=== PATIENT | male | born 1995 | race African-American/Black ===

== ENCOUNTER 2019-09-02 08:19 | Emergency (ER) | payer MEDICAID, OTHER ==
[~2019-09-02] VITALS: Ht 180.3 cm; Wt 96.4 kg
--- NOTE | 2019-09-02 08:57 | REP ---
Head CT without contrast: History: Headache and syncope. Comparison study: No comparison study. CT findings: Bone window settings demonstrate an intact bony calvarium. There is no evidence of skull fracture or incidental bony calvarial lesion. The visualized paranasal sinuses appear clear. No intraorbital abnormality is seen. On soft tissue window setting images; the lateral, third, and fourth ventricles are normal in size and position. Harvey-white differentiation pattern is normal above and below the tentorium. There are is no evidence of intracranial hemorrhage. No mass, edema, infarction, or midline shift is seen. No extra-axial fluid collection is appreciated. Impression: Negative noncontrast head CT. Electronically Signed by Elie Gar MD 09/02/2019 08:47 A
--- NOTE | 2019-09-02 09:06 | REP ---
Chest x-ray: Two views. History: Syncope . Comparison study: No comparison study . Findings: The lungs are well inflated and free of infiltrate. The pleural angles are sharp. The heart size is normal. Pulmonary vasculature is not increased. No significant bony abnormality is seen. Monitoring electrodes are seen on the frontal radiograph. Impression: Negative chest x-ray. Electronically Signed by Elie Gar MD 09/02/2019 08:58 A
[2019-09-02 09:18] LABS: BASO # 0.1 10^3/uL (0.0-0.2); BASO % 0.3 % (0.0-1.0); EOS # 0.1 10^3/uL (0.0-0.5); EOS % 0.8 % (0.0-3.0); HEMATOCRIT 47.1 % (42.0-52.0); HEMOGLOBIN 15.8 g/dl (13.5-17.5); LYMPH # 1.4 10^3/uL (1.5-5.0); LYMPH % 9.9 % (24.0-44.0); MEAN CORPUSCULAR HEMOGLOBIN 28.3 pg (27.0-33.0); MEAN CORPUSCULAR HGB CONC 33.5 g/dl (32.0-36.5); MEAN CORPUSCULAR VOLUME 84.4 fl (80.0-96.0); MONO # 0.8 10^3/uL (0.0-0.8); MONO % 5.8 % (0.0-5.0); NEUTROPHILS # 11.9 10^3/uL (1.5-8.5); NEUTROPHILS % 82.8 % (36.0-66.0); PLATELET COUNT, AUTOMATED 266 10^3/uL (150-450); RED BLOOD COUNT 5.58 10^6/uL (4.30-6.10); WHITE BLOOD COUNT 14.4 10^3/uL (4.0-10.0)
[2019-09-02 09:51] LABS: BLOOD UREA NITROGEN 14 MG/DL (7-18); CALCIUM LEVEL 9.1 MG/DL (8.5-10.1); CARBON DIOXIDE LEVEL 31 MEQ/L (21-32); CHLORIDE LEVEL 106 MEQ/L (98-107); CK-MB VALUE MASS 1.1 NG/ML (<3.6); CPK CREATINE PHOSPHOKINASE 388 U/L (39-308); CREATININE FOR GFR 1.28 MG/DL (0.70-1.30); FREE T4 1.09 NG/DL (0.76-1.46); GLOMERULAR FILTRATION RATE > 60.0 (>60); GLUCOSE, FASTING 89 MG/DL (70-100); MAGNESIUM LEVEL 2.2 MG/DL (1.8-2.4); MB/CK RELATIVE INDEX 0.28 (< OR =4); POTASSIUM SERUM 4.4 MEQ/L (3.5-5.1); SODIUM LEVEL 140 MEQ/L (136-145); TROPONIN I < 0.02 NG/ML (< 0.10)
[2019-09-02 10:30] VITALS: BP 142/65
--- NOTE | 2019-09-02 18:42 | ECGEPIP ---
[facility] - ED Test Date: 2019-09-02 Pat Name: REJI WHITMAN Department: Room: - Gender: Male Center Customer Service Associate: JJevon : 1995 Requested By: MAN Pires Order Number: [id number] Reading MD: Sheba Robles Measurements Intervals [place] Rate: 56 P: 33 OR: 145 QRS: 75 QRSD: 94 T: 47 QT: 366 QTc: 355 Interpretive Statements SINUS BRADYCARDIA WITH SINUS ARRHYTHMIA ST ELEVATION, PROBABLY EARLY REPOLARIZATION NO PRIOR Electronically Signed on 09-02-2019 18:42:25 EDT by Sheba Robles
== END 2019-09-02 10:45 | disposition home or self-care (01) ==
LOC: M ED 08:19 → EDBD 08:19 → M ED 10:45
DX: R55 Syncope and collapse (principal); F12.10 Cannabis abuse, uncomplicated; R00.1 Bradycardia, unspecified; Z91.013 Allergy to seafood

== ENCOUNTER → 2020-01-16 | Emergency (ER) | payer OTHER, MEDICAID ==
[~2020-01-16] MED LIST: KEPP750T3 PO
[2020-03-26 01:02] LABS: PROLACTIN 10.6 NG/ML (2.1-17.7)
[2020-03-26 01:21] LABS: AMPHETAMINES LEVEL URINE NEGATIVE (NEGATIVE); BARBITURATES URINE NEGATIVE (NEGATIVE); BENZODIAZEPINES URINE NEGATIVE (NEGATIVE); CANNABINOIDS URINE POSITIVE (NEGATIVE); COCAINE METABOLITE URINE NEGATIVE (NEGATIVE); METHADONE URINE NEGATIVE (NEGATIVE); OPIATES URINE NEGATIVE (NEGATIVE); PHENCYCLIDINE URINE NEGATIVE (NEGATIVE)
== END | disposition home or self-care (01) ==
LOC: M ED 08:21
DX: R56.9 Unspecified convulsions (principal); F12.90 Cannabis use, unspecified, uncomplicated; F17.200 Nicotine dependence, unspecified, uncomplicated; F32.9 Major depressive disorder, single episode, unspecified; F41.9 Anxiety disorder, unspecified; Z91.013 Allergy to seafood

== ENCOUNTER 2020-04-22 13:20 | Observation (INO) | payer MEDICAID, OTHER ==
[2020-04-22] MEDS ORDERED: NS 1,000 ML IV ONE ×2 (13:45→14:45)
--- NOTE | 2020-04-22 14:05 | REP ---
INDICATION: Altered Mental Status. COMPARISON: 09/02/2019. TECHNIQUE: CT BRAIN PERFORMED IN THE AXIAL PLANE. CORONAL RECONSTRUCTION IMAGES ARE PERFORMED. FINDINGS: THE VENTRICLES ARE NORMAL IN SIZE AND POSITION. THERE IS NO MIDLINE SHIFT OR MASS EFFECT. RANDLE-WHITE DIFFERENTIATION IS WELL MAINTAINED. THERE IS NO ACUTE INTRACRANIAL HEMORRHAGE OR EXTRA-AXIAL FLUID COLLECTION. BONE WINDOW EXAMINATION IS UNREMARKABLE. VISUALIZED MASTOID AIR CELLS AND PARANASAL SINUSES ARE CLEAR. IMPRESSION: NEGATIVE NONCONTRAST CT BRAIN. <Electronically signed by Jaden Jain > 04/22/20 [id number]
[2020-04-22 14:07] LABS: BASO % 0.3 % (0.0-1.0); EOS # 0.1 10^3/uL (0.0-0.5); EOS % 0.9 % (0.0-3.0); HEMATOCRIT 46.4 % (42.0-52.0); HEMOGLOBIN 14.7 g/dl (13.5-17.5); LYMPH # 1.3 10^3/uL (1.5-5.0); LYMPH % 11.5 % (24.0-44.0); MEAN CORPUSCULAR HEMOGLOBIN 26.9 pg (27.0-33.0); MEAN CORPUSCULAR HGB CONC 31.7 g/dl (32.0-36.5); MONO # 0.6 10^3/uL (0.0-0.8); PLATELET COUNT, AUTOMATED 262 10^3/uL (150-450); RED BLOOD COUNT 5.46 10^6/uL (4.30-6.10)
[2020-04-22 14:57] LABS: ALT/SGPT 28 U/L (12-78); BLOOD UREA NITROGEN 12 MG/DL (7-18); CALCIUM LEVEL 8.3 MG/DL (8.5-10.1); CARBON DIOXIDE LEVEL 22 MEQ/L (21-32); CHLORIDE LEVEL 107 MEQ/L (98-107); CREATININE FOR GFR 1.25 MG/DL (0.70-1.30); GLOMERULAR FILTRATION RATE > 60.0 (>60); GLUCOSE, FASTING 110 MG/DL (70-100); POTASSIUM SERUM 4.7 MEQ/L (3.5-5.1); SODIUM LEVEL 138 MEQ/L (136-145)
[2020-04-22 14:58] LABS: ALBUMIN 3.8 GM/DL (3.2-5.2); BILIRUBIN,DIRECT < 0.1 MG/DL (0.0-0.2); BILIRUBIN,TOTAL 0.3 MG/DL (0.2-1.0); CK-MB VALUE MASS 1.7 NG/ML (<3.6); CPK CREATINE PHOSPHOKINASE 390 U/L (39-308); ETHYL ALCOHOL (ETHANOL) < 0.003 % (0.000-0.010); MAGNESIUM LEVEL 1.9 MG/DL (1.8-2.4); MB/CK RELATIVE INDEX 0.44 (< OR =4); TOTAL PROTEIN 7.3 GM/DL (6.4-8.2); TROPONIN I < 0.02 NG/ML (< 0.10)
[2020-04-22] MEDS ORDERED: ACETAMINOPHEN 325 MG TAB PO ONE (15:30)
[2020-04-22 15:40] LABS: AMPHETAMINES LEVEL URINE NEGATIVE (NEGATIVE); BARBITURATES URINE NEGATIVE (NEGATIVE); BENZODIAZEPINES URINE NEGATIVE (NEGATIVE); CANNABINOIDS URINE POSITIVE (NEGATIVE); COCAINE METABOLITE URINE NEGATIVE (NEGATIVE); METHADONE URINE NEGATIVE (NEGATIVE); OPIATES URINE NEGATIVE (NEGATIVE); PHENCYCLIDINE URINE NEGATIVE (NEGATIVE)
[2020-04-22] MEDS ORDERED: levETIRAcetam INJection 1,000 MG in D5W 100 ML IV ONE (16:00)
[2020-04-22] MEDS ORDERED: KEPP750T3 PO (16:40)
[2020-04-22] MEDS ORDERED: LORazepam 2 MG/ML VIAL As Ordered ONE (17:00)
[2020-04-22] MEDS ORDERED: LORazepam 2 MG/ML VIAL IV STA (17:16)
[2020-04-22] MEDS ORDERED: LORazepam 2 MG/ML VIAL IV PRN (17:45)
--- NOTE | 2020-04-22 17:51 | HPEPDOC ---
[facility] Medical History & Physical Date of Admission Apr 22, 2020 Date of Service: Apr 22, 2020 Attending Physician: Jennifer Camacho MD History and Physical CHIEF COMPLAINT: Seizure HISTORY OF PRESENT ILLNESS: Patient is a 25-year-old male with past mental history of grand mal seizure disorder who presented to [facility] emergency room after having a witnessed seizure at home. Patient was a poor historian as he had been given ativan prior to me admitting him. According to EMS records, the patient's girlfriend recalls the patient having a "longer than normal seizure" approximately 30 seconds long. It was noted the patient had bit the side of his tongue during this seizure and after 30 seconds was very confused about what had just happened. 911 was called. Vital signs were normal. He was normal sinus rhythm 100% on room air. In the emergency room the patient was awake alert and oriented 3, he was able to give a thorough history. Labs showed lactic acid of 7.9, AST of 52. He was given a total of two NSS boluses. UDS positive for cannabinoids only. The PBC mildly elevated at 11. Neurology was called and patient had followed up with [facility] as o/p after 1st seizure in 01/2020. He had EEG done o/p, results unknown. He had not followed back up with them since. Dr. Patrick suggested a 1 g Keppra dose then to start on 750 mg of Keppra daily. Prior to the 1 g keppra being able to be given he had another witnessed seizure lasting approximately 45 seconds, grand mal. The patient was given the 1 g Keppra, 1 mg Ativan. The patient was admitted for grand mal seizure disorder, lactic acidosis. Note: Patient was sedated with ativan when I admitted him this evening so he cou ld not discuss ROS with me PAST MEDICAL HISTORY: 1. Grand mal seizure disorder 2. Marijuana use PAST SURGICAL HISTORY: 1. Tonsillectomy FAMILY HISTORY: Unable to obtain due to decreased mental state of patient SOCIAL HISTORY: Smokes marijuana. Unable to obtain due to decreased mental state of patient ALLERGIES: Shellfish, iodine HOME MEDICATIONS: Please see below. PHYSICAL EXAMINATION: VS: Please see below CONSTITUTIONAL: No acute distress, resting comfortably, lethargic, unable to answer questions due to sedating medication EYES: PERRLA, EOM intact HENT, MOUTH: Normocephalic, moist mucous membranes, tongue bitten on left side NECK: SUPPLE, no JVD, no lymphadenopathy, no carotid bruit CV: Regular rate and rhythm, S1S2 normal, no murmurs/rubs/gallops RESPIRATORY: Clear to auscultation bilaterally, no rales/rhonchi/wheezes GI: BS positive in 4 quadrants, soft, nontender, nondistended, no rebound or guarding, no organomegaly : Deferred MUSCULOSKELETAL: ROM not tested . No cyanosis, clubbing, swelling, joint deformity, extremity edema INTEGUMENTARY: Intact, no rashes, no lesions, no erythema NEUROLOGIC: no focal deficits LABORATORY DATA: Please see below IMAGING: CT head: No acute intracranial abnormality ASSESSMENT: 25-year-old male with past mental history of grand mal seizure disorder admitted for close monitoring of seizure disorder, treatment of lactic acidosis. PLAN: #Grand mal seizure disorder -2 witnessed seizures today, one at home and another in the ER -Not on home medications -Given 1 gm keppra IV (loading dose) in ER and will start keppra 750 mg Po daily in AM on 04/23/20 -Keep on monitor overnight, seizure precautions, fall precautions, HOB elevated 45 degrees, aspiration risk, neuro checks Q4hrs -Dr. Patrick called from ER but if needed again, call again -Ativan PRN for seizure activity #Lactic acidosis 2/2 to seizures -LA 7.9, not suspecting other source of infection or acidosis at this time -WBC minimally elevated at 11K -S/p two NSS boluses in ER -C/w NSS at 150 cc/hr -F/u daily labs and LA Q4 hrs until normalization. #Abnormal ECG -ECG: ST elevation, possible early repolarization -ECG from 08/2019: ST elevation, possible early repolarization -F/u ECG in the AM, on tele #DVT px. -Enoxaparin SC DISPOSITION: Admitted under observation status. Plan is PT/OT, discharge home when medically improved. Vital Signs Vital Signs Date Time Temp Pulse Resp B/P (MAP) Pulse Ox O2 Delivery O2 Flow Rate FiO2 04/22/20 17:05 94 16 04/22/20 17:01 158/83 (108) 04/22/20 16:50 99 Room Air 04/22/20 13:33 97.2 Laboratory Data Labs 24H Laboratory Tests 2 04/22/20 13:37: Urine Opiates Screen NEGATIVE, Urine Methadone Screen NEGATIVE, Urine Barbiturates Screen NEGATIVE, Urine Phencyclidine Screen NEGATIVE, Urine Amphetamines Screen NEGATIVE, Urine Benzodiazepines Screen NEGATIVE, Urine Cocaine Metabolite Screen NEGATIVE, Urine Cannabinoids Screen POSITIVEH 04/22/20 13:45: Immature Granulocyte % (Auto) 0.3, Neutrophils (%) (Auto) 82.0H, Lymphocytes (%) (Auto) 11.5L, Monocytes (%) (Auto) 5.0, Eosinophils (%) (Auto) 0.9, Basophils (%) (Auto) 0.3, Neutrophils # (Auto) 9.0H, Lymphocytes # (Auto) 1.3L, Monocytes # (Auto) 0.6, Eosinophils # (Auto) 0.1, Basophils # (Auto) 0.0, Nucleated Red Blood Cells % (auto) 0.0, Anion Gap 9, Glomerular Filtration Rate > 60.0, Lactic Acid Level 7.9*H, Calcium Level 8.3L, Magnesium Level 1.9, Total Bilirubin 0.3, Direct Bilirubin < 0.1, Aspartate Amino Transf (AST/SGOT) 52H, Alanine Aminotransferase (ALT/SGPT) 28, Alkaline Phosphatase 66, Total Creatine Kinase 390H, Creatine Kinase MB 1.7, Creatine Kinase MB Relative Index 0.44, Troponin I < 0.02, Total Protein 7.3, Albumin 3.8, Albumin/Globulin Ratio 1.1, Thyroid Stimulating Hormone (TSH) 1.590, Ethyl Alcohol Level < 0.003 CBC/BMP Laboratory Tests 04/22/20 13:45 Home Medications Scheduled Levetiracetam (Keppra Xr) 750 Mg Tab.er.24h, 1 TAB PO DAILY Allergies Coded Allergies: shellfish derived (Verified Allergy, Unknown, 09/02/19) A-FIB/CHADSVASC A-FIB History Current/History of A-Fib/PAF?: No Current PO Anticoag Therapy: No Age/Risk Factor Scoring CHADSVASC: CHADSVASC Response (Comments) Value Age Risk Factor Age < 65 years old 0 Gender Risk Factor Male 0 Hx of CHF No 0 Hx of HTN No 0 Hx of Stroke/TIA/or VTE No 0 Hx of Diabetes No 0 Hx of Vascular Disease No 0 Total 0 Treatment Treatment ordered: Other Other anticoagulant ordered: Jennifer Castro MD Apr 22, 2020 17:51
[2020-04-22] MEDS: NS 1,000 ML IV SCH ×2 (17:57→23:58)
[2020-04-22 20:13] VITALS: BP 133/67
[2020-04-22 20:38] LABS: HEMATOCRIT 42.4 % (42.0-52.0); HEMOGLOBIN 13.7 g/dl (13.5-17.5); MEAN CORPUSCULAR HGB CONC 32.3 g/dl (32.0-36.5); MEAN CORPUSCULAR VOLUME 83.5 fl (80.0-96.0); PLATELET COUNT, AUTOMATED 177 10^3/uL (150-450); RED BLOOD COUNT 5.08 10^6/uL (4.30-6.10); WHITE BLOOD COUNT 12.3 10^3/uL (4.0-10.0)
[2020-04-22] MEDS ORDERED: ENOXAPARIN 40MG/0.4ML SYRINGE (J1650 PER 10MG) SC SCH (21:00)
[2020-04-22 21:04] LABS: ALBUMIN 3.5 GM/DL (3.2-5.2); ALT/SGPT 23 U/L (12-78); BILIRUBIN,TOTAL 0.4 MG/DL (0.2-1.0); BLOOD UREA NITROGEN 11 MG/DL (7-18); CALCIUM LEVEL 8.7 MG/DL (8.5-10.1); CARBON DIOXIDE LEVEL 27 MEQ/L (21-32); CHLORIDE LEVEL 107 MEQ/L (98-107); CREATININE FOR GFR 1.03 MG/DL (0.70-1.30); GLOMERULAR FILTRATION RATE > 60.0 (>60); GLUCOSE, FASTING 77 MG/DL (70-100); POTASSIUM SERUM 4.5 MEQ/L (3.5-5.1); SODIUM LEVEL 138 MEQ/L (136-145); TOTAL PROTEIN 6.7 GM/DL (6.4-8.2)
[2020-04-23] VITALS: BP 126/73
[2020-04-23 04:00] VITALS: BP 137/76
[2020-04-23] MEDS: NS 1,000 ML IV SCH ×2 (06:45→12:59)
[2020-04-23 07:29] VITALS: BP 147/69
[2020-04-23] MEDS ORDERED: levETIRAcetam 250MG TABLET (KEPPRA) PO SCH (09:00)
--- NOTE | 2020-04-23 09:44 | ECGEPIP ---
[facility] - ED Test Date: 2020-04-22 Pat Name: REJI WHITMAN Department: Room: - Gender: Male Assistant Counsel: duran : 1995 Requested By: BROOK CHAUDHARY Order Number: [id number] Reading MD: Raleigh Rich Measurements Intervals [place] Rate: 69 P: 26 NM: 158 QRS: 37 QRSD: 94 T: 25 QT: 369 QTc: 396 Interpretive Statements SINUS RHYTHM WITH SINUS ARRHYTHMIA INCOMPLETE RIGHT BUNDLE BRANCH BLOCK ST ELEVATION, PROBABLY EARLY REPOLARIZATION SIMILAR TO 09/02/19 Electronically Signed on 04-23-2020 9:43:58 EST by Raleigh Rich
[2020-04-23 12:10] VITALS: BP 138/63
--- NOTE | 2020-04-23 12:45 | DS.PDOC ---
Discharge Summary General Date of Admission Apr 22, 2020 at 13:21 Date of Discharge 04/23/20 Attending Physician: Jennifer Camacho MD Discharge Summary HISTORY OF PRESENT ILLNESS: Patient is a 25-year-old male with past mental history of grand mal seizure disorder who presented to [facility] emergency room after having a witnessed seizure at home. Patient was a poor historian as he had been given ativan prior to me admitting him. According to EMS records, the patient's girlfriend recalls the patient having a "longer than normal seizure" approximately 30 seconds long. It was noted the patient had bit the side of his tongue during this seizure and after 30 seconds was very confused about what had just happened. 911 was called. Vital signs were normal. He was normal sinus rhythm 100% on room air. In the emergency room the patient was awake alert and oriented 3, he was able to give a thorough history. Labs showed lactic acid of 7.9, AST of 52. He was given a total of two NSS boluses. UDS positive for cannabinoids only. The PBC mildly elevated at 11. Neurology was called and patient had followed up with [facility] as o/p after 1st seizure in 01/2020. He had EEG done o/p, results unknown. He had not followed back up with them since. Dr. Patrick suggested a 1 g Keppra dose then to start on 750 mg of Keppra daily. Prior to the 1 g keppra being able to be given he had another witnessed seizure lasting approximately 45 seconds, grand mal. The patient was given the 1 g Keppra, 1 mg Ativan. The patient was admitted for grand mal seizure disorder, lactic acido sis. Note: Patient was sedated with ativan when I admitted him this evening so he could not discuss ROS with me HOSPITAL COURSE: Patient was much more awake and alert the next AM after admission. He has had no other seizures overnight and felt strong enough to participate with PT the next AM. He walked without concerns. He will be discharged today with f/u with both PCP and neurology. He denies headache, blurry vision, lightheadedness, n/v/d, chest pain, fevers, shortness of breath. PAST MEDICAL HISTORY: 1. Grand mal seizure disorder 2. Marijuana use PAST SURGICAL HISTORY: 1. Tonsillectomy FAMILY HISTORY: Unable to obtain due to decreased mental state of patient SOCIAL HISTORY: Smokes marijuana. Unable to obtain due to decreased mental state of patient ALLERGIES: Shellfish, iodine HOME MEDICATIONS: Please see below. PHYSICAL EXAMINATION: VS: Please see below CONSTITUTIONAL: No acute distress, resting comfortably in bed. AAOx3 EYES: PERRLA, EOM intact HENT, MOUTH: Normocephalic, moist mucous membranes, tongue bitten on left side NECK: SUPPLE, no JVD, no lymphadenopathy, no carotid bruit CV: Regular rate and rhythm, S1S2 normal, no murmurs/rubs/gallops RESPIRATORY: Clear to auscultation bilaterally, no rales/rhonchi/wheezes GI: BS positive in 4 quadrants, soft, nontender, nondistended, no rebound or guarding, no organomegaly : Deferred MUSCULOSKELETAL: ROM not tested . No cyanosis, clubbing, swelling, joint deformity, extremity edema INTEGUMENTARY: Intact, no rashes, no lesions, no erythema NEUROLOGIC: no focal deficits, CN 2-12 intact LABORATORY DATA: Please see below IMAGING: CT head: No acute intracranial abnormality ASSESSMENT: 25-year-old male with past mental history of grand mal seizure disorder admitted for close monitoring of seizure disorder, treatment of lactic acidosis. PLAN: #Grand mal seizure disorder -2 witnessed seizures today, one at home and another in the ER -no seizures overnight. -Not on home medications -Plan: c/w 750 mg Po daily, f/u with neurology and PCP after discharge. #Lactic acidosis 2/2 to seizures- resolved -LA 7.9 on admission and now <2, not suspecting other source of infection or aci dosis at this time -Encourage to continue to hydrate adequately during the day #Abnormal ECG -ECG: ST elevation, possible early repolarization -ECG from 08/2019: ST elevation, possible early repolarization -F/u with PCP DISPOSITION: Discharge home to prior living situation. Needs f/u with PCP and neurology before discharge. TIME SPENT ON DISCHARGE: Greater than 30 minutes. Vital Signs/I&Os Vital Signs Date Time Temp Pulse Resp B/P (MAP) Pulse Ox O2 Delivery O2 Flow Rate FiO2 04/23/20 12:10 98.5 73 18 138/63 (88) 98 Room Air I&O- Last 24 Hours up to 6 AM 04/23/20 06:00 Intake Total 3790 ml Output Total 950 ml Balance 2840 ml Laboratory Data Labs 24H Laboratory Tests 2 04/22/20 13:37: Urine Opiates Screen NEGATIVE, Urine Methadone Screen NEGATIVE, Urine Barbiturates Screen NEGATIVE, Urine Phencyclidine Screen NEGATIVE, Urine Amphetamines Screen NEGATIVE, Urine Benzodiazepines Screen NEGATIVE, Urine Cocaine Metabolite Screen NEGATIVE, Urine Cannabinoids Screen POSITIVEH 04/22/20 13:45: Immature Granulocyte % (Auto) 0.3, Neutrophils (%) (Auto) 82.0H, Lymphocytes (%) (Auto) 11.5L, Monocytes (%) (Auto) 5.0, Eosinophils (%) (Auto) 0.9, Basophils (%) (Auto) 0.3, Neutrophils # (Auto) 9.0H, Lymphocytes # (Auto) 1.3L, Monocytes # (Auto) 0.6, Eosinophils # (Auto) 0.1, Basophils # (Auto) 0.0, Nucleated Red Blood Cells % (auto) 0.0, Anion Gap 9, Glomerular Filtration Rate > 60.0, Lactic Acid Level 7.9*H, Calcium Level 8.3L, Magnesium Level 1.9, Total Bilirubin 0.3, Direct Bilirubin < 0.1, Aspartate Amino Transf (AST/SGOT) 52H, Alanine Aminotransferase (ALT/SGPT) 28, Alkaline Phosphatase 66, Total Creatine Kinase 390H, Creatine Kinase MB 1.7, Creatine Kinase MB Relative Index 0.44, Troponin I < 0.02, Total Protein 7.3, Albumin 3.8, Albumin/Globulin Ratio 1.1, Thyroid Stimulating Hormone (TSH) 1.590, Ethyl Alcohol Level < 0.003 04/22/20 18:58: Coronavirus (COVID-19)(PCR) NEGATIVE 04/22/20 20:05: Nucleated Red Blood Cells % (auto) 0.0, Anion Gap 4L, Glomerular Filtration Rate > 60.0, Calcium Level 8.7, Total Bilirubin 0.4, Aspartate Amino Transf (AST/SGOT) 24, Alanine Aminotransferase (ALT/SGPT) 23, Alkaline Phosphatase 65, Total Protein 6.7, Albumin 3.5, Albumin/Globulin Ratio 1.1, Lactic Acid Followup at 4 Hours 2.2*H 04/23/20 08:30: Lactic Acid Level 1.8 CBC/BMP Laboratory Tests 04/22/20 13:45 04/22/20 20:05 Discharge Medications Scheduled Levetiracetam (Keppra Xr) 750 Mg Tab.er.24h, 1 TAB PO DAILY Allergies Coded Allergies: shellfish derived (Verified Allergy, Unknown, 09/02/19) Jennifer Camacho MD Apr 23, 2020 12:45
--- NOTE | 2020-04-24 05:39 | ECGEPIP ---
[facility] Test Date: 2020-04-23 Pat Name: REJI WHITMAN Department: Room: [place] [id number] Gender: Male Grey Tender: : 1995 Requested By: Jennifer Teresa Order Number: [id number] Reading MD: Davion Quintero Measurements Intervals [place] Rate: 65 P: 11 NE: 157 QRS: 46 QRSD: 96 T: 30 QT: 380 QTc: 395 Interpretive Statements Normal sinus rhythm Incomplete right bundle branch block Early repolarization No significant change when compared to prior tracing of 04/22/2020 Electronically Signed on 04-24-2020 5:38:58 EST by Davion Quintero
== END 2020-04-23 16:00 | disposition home or self-care (01) ==
LOC: EDBD 13:20 → M ED 13:20 → M ED INP 13:21 → ENRESERV 18:15 → M PCU 20:13
PROVIDERS: ADMIT Internal Medicine; ATTEND Internal Medicine
DX: G40.909 Epilepsy, unspecified, not intractable, without status epilepticus (principal); F12.10 Cannabis abuse, uncomplicated; Z91.013 Allergy to seafood; Z79.899 Other long term (current) drug therapy
CPT/HCPCS: 36415; 70450; 80048; 80053; 80076; 80307; 82550; 82553; 83605; 83735; 84443; 85025; 85027; 93005; 93041; 94760; 96361; 96365; 96372; 96375; 96376; 97161; 99285; G0480; J1650; J1953; J2060; U0002

== ENCOUNTER 2020-07-13 15:35 | Emergency (ER) | payer OTHER ==
[2020-07-13] MEDS ORDERED: OXcarbazepine 150 MG TAB PO ONE (16:15)
[2020-07-13] MEDS ORDERED: LORazepam 2 MG/ML VIAL IV STA (16:33)
[2020-07-13] MEDS ORDERED: LORazepam 2 MG/ML VIAL As Ordered ONE (16:36)
[2020-07-13] MEDS ORDERED: levETIRAcetam INJection 1,000 MG in D5W 100 ML IV ONE (16:45)
--- OUTSIDE RECORDS SUMMARY | 2020-07-13 18:12 | CCD ---
Author Author [facility] Organization [facility] Address Unknown Phone Unavailable Care Team Providers Care Yard Worker Name Role Phone Scordo, M Alka PA Unavailable Unavailable Scordo, M Alka PA Unavailable Unavailable Scordo, M Alka PA Unavailable Unavailable Scordo, M Alka PA Unavailable Unavailable Scordo, M Alka PA Unavailable Unavailable Scordo, M Alka PA Unavailable Unavailable Scordo, M Akla PA Unavailable Unavailable Scordo, M Alka PA Unavailable Unavailable Scordo, M Alka PA Unavailable Unavailable Scordo, M Alka PA Unavailable Unavailable Scordo, M Alka PA Unavailable Unavailable Scordo, M Alka PA Unavailable Unavailable Scordo, M Alka PA Unavailable Unavailable Scordo, M Alka PA Unavailable Unavailable Scordo, M Alka PA Unavailable Unavailable Scordo, M Alka PA Unavailable Unavailable Scordo, M Alka PA Unavailable Unavailable Scordo, M Alka PA Unavailable Unavailable Scordo, M Alka PA Unavailable Unavailable Scordo, M Alka PA Unavailable Unavailable Scordo, M Alka PA Unavailable Unavailable Scordo, M Alka PA Unavailable Unavailable Scordo, M Alka PA Unavailable Unavailable Scordo, M Alka PA Unavailable Unavailable Scordo, M Alka PA Unavailable Unavailable Scordo, M Alka PA Unavailable Unavailable Scordo, M Alka PA Unavailable Unavailable Scordo, M Alka PA Unavailable Unavailable Scordo, M Alka PA Unavailable Unavailable Scordo, M Alka PA Unavailable Unavailable Scordo, M Alka PA Unavailable Unavailable Scordo, M Alka PA Unavailable Unavailable Scordo, M Alka PA Unavailable Unavailable Scordo, M Alka PA Unavailable Unavailable Scordo, M Alka PA Unavailable Unavailable Scordo, M Alka PA Unavailable Unavailable Scordo, M Alka PA Unavailable Unavailable Scordo, M Alka PA Unavailable Unavailable Scordo, M Alka PA Unavailable Unavailable Scordo, M Alka PA Unavailable Unavailable Scordo, M Alka PA Unavailable Unavailable Scordo, M Alka PA Unavailable Unavailable Garcia, M Vianney PA-C Unavailable Unavailable Garcia, M Vianney PA-C Unavailable Unavailable Garcia, M Vianney PA-C Unavailable Unavailable Garcia, M Vianney PA-C Unavailable Unavailable Garcia, M Vianney PA-C Unavailable Unavailable Garcia, M Vianney PA-C Unavailable Unavailable Garcia, M Vianney PA-C Unavailable Unavailable Garcia, M Vianney PA-C Unavailable Unavailable Garcia, M Vianney PA-C Unavailable Unavailable Garcia, M Vianney PA-C Unavailable Unavailable Garcia, M Vianney PA-C Unavailable Unavailable Garcia, M Vianney PA-C Unavailable Unavailable Garcia, M Vianney PA-C Unavailable Unavailable Garcia, M Vianney PA-C Unavailable Unavailable Garcia, M Vianney PA-C Unavailable Unavailable Garcia, M Vianney PA-C Unavailable Unavailable Garcia, M Vianney PA-C Unavailable Unavailable Garcia, M Vianney PA-C Unavailable Unavailable Garcia, M Vianney PA-C Unavailable Unavailable Garcia, M Vianney PA-C Unavailable Unavailable Garcia, M Vianney PA-C Unavailable Unavailable Garcia, M Vianney PA-C Unavailable Unavailable Garcia, M Vianney PA-C Unavailable Unavailable Garcia, M Vianney PA-C Unavailable Unavailable Garcia, M Vianney PA-C Unavailable Unavailable Garcia, M Vianney PA-C Unavailable Unavailable Garcia, M Vianney PA-C Unavailable Unavailable Garcia, M Vianney PA-C Unavailable Unavailable Garcia, M Vianney PA-C Unavailable Unavailable Garcia, M Vianney PA-C Unavailable Unavailable Garcia, M Vianney PA-C Unavailable Unavailable Garcia, M Vianney PA-C Unavailable Unavailable Garcia, M Vianney PA-C Unavailable Unavailable Garcia, M Vianney PA-C Unavailable Unavailable Garcia, M Vianney PA-C Unavailable Unavailable Garcia, M Vianney PA-C Unavailable Unavailable Garcia, M Vianney PA-C Unavailable Unavailable Garcia, M Vianney PA-C Unavailable Unavailable Garcia, M Vianney PA-C Unavailable Unavailable Garcia, M Vianney PA-C Unavailable Unavailable Garcia, M Vianney PA-C Unavailable Unavailable Garcia, M Vianney PA-C Unavailable Unavailable Garcia, M Vianney PA-C Unavailable Unavailable Garcia, M Vianney PA-C Unavailable Unavailable Garcia, M Vianney PA-C Unavailable Unavailable Garcia, M Vianney PA-C Unavailable Unavailable Garcia, M Vianney PA-C Unavailable Unavailable Garcia, M Vianney PA-C Unavailable Unavailable Garcia, M Vianney PA-C Unavailable Unavailable Garcia, M Vianney PA-C Unavailable Unavailable Garcia, M Vianney PA-C Unavailable Unavailable Garcia, M Vianney PA-C Unavailable Unavailable Garcia, M Vianney PA-C Unavailable Unavailable Garcia, M Vianney PA-C Unavailable Unavailable Garcia, M Vianney PA-C Unavailable Unavailable Garcia, M Vianney PA-C Unavailable Unavailable Garcia, M Vianney PA-C Unavailable Unavailable Garcia, M Vianney PA-C Unavailable Unavailable Garcia, M Vianney PA-C Unavailable Unavailable Garcia, M Vianney PA-C Unavailable Unavailable Garcia, M Vianney PA-C Unavailable Unavailable Garcia, M Vianney PA-C Unavailable Unavailable Garcia, M Vianney PA-C Unavailable Unavailable Garcia, M Vianney PA-C Unavailable Unavailable Tyson Lombardi MD Unavailable Unavailable Tyson Lombardi MD Unavailable Unavailable Tyson Lombardi MD Unavailable Unavailable Tyson Lombardi MD Unavailable Unavailable Tyson Lombardi MD Unavailable Unavailable Tyson Lombardi MD Unavailable Unavailable Tyson Lombardi MD Unavailable Unavailable Tyson Lombardi MD Unavailable Unavailable Tyson Lombardi MD Unavailable Unavailable Tyson Lombardi MD Unavailable Unavailable Tyson Lombardi MD Unavailable Unavailable Tyson Lombardi MD Unavailable Unavailable Tyson Lombardi MD Unavailable Unavailable Tyson Lombardi MD Unavailable Unavailable Tyson Lombardi MD Unavailable Unavailable Tyson Lomabrdi MD Unavailable Unavailable Tyson Lombardi MD Unavailable Unavailable Tyson Lombardi MD Unavailable Unavailable Tyson Lombardi MD Unavailable Unavailable Tyson Lombardi MD Unavailable Unavailable Tyson Lombardi MD Unavailable Unavailable Tyson Lombardi MD Unavailable Unavailable Tyson Lombardi MD Unavailable Unavailable Tyson Lombardi MD Unavailable Unavailable Tyson Lombardi MD Unavailable Unavailable Tyson Lombardi MD Unavailable Unavailable Tyson Lombardi MD Unavailable Unavailable Tyson Lombardi MD Unavailable Unavailable AliTyson MD Unavailable Unavailable AliTyson MD Unavailable Unavailable Ali, Tyson MD Unavailable Unavailable Ali, Tyson MD Unavailable Unavailable Ali, Tyson MD Unavailable Unavailable Ali, Tyson MD Unavailable Unavailable Ali, Tyson MD Unavailable Unavailable Ali, Tyson MD Unavailable Unavailable Ali, Tyson MD Unavailable Unavailable Ali, Tyson MD Unavailable Unavailable Ali, Tyson MD Unavailable Unavailable Ali, Tyson MD Unavailable Unavailable Ali, Tyson MD Unavailable Unavailable Ali, Tyson MD Unavailable Unavailable Ali, Tyson MD Unavailable Unavailable Ali, Tyson MD Unavailable Unavailable Ali, Tyson MD Unavailable Unavailable Ali, Tyson MD Unavailable Unavailable Ali, Tyson MD Unavailable Unavailable Ali, Tyson MD Unavailable Unavailable Ali, Tyson MD Unavailable Unavailable LETTIERE, A NATANAEL PA Unavailable Unavailable LETTIERE, A NATANAEL PA Unavailable Unavailable LETTIERE, A NATANAEL PA Unavailable Unavailable LETTIERE, A NATANAEL PA Unavailable Unavailable LETTIERE, A NATANAEL PA Unavailable Unavailable LETTIERE, A NATANAEL PA Unavailable Unavailable LETTIERE, A NATANAEL PA Unavailable Unavailable LETTIERE, A NATANAEL PA Unavailable Unavailable LETTIERE, A NATANAEL PA Unavailable Unavailable LETTIERE, A NATANAEL PA Unavailable Unavailable LETTIERE, A NATANAEL PA Unavailable Unavailable LETTIERE, A NATANAEL PA Unavailable Unavailable LETTIERE, A NATANAEL PA Unavailable Unavailable LETTIERE, A NATANAEL PA Unavailable Unavailable LETTIERE, A NATANAEL PA Unavailable Unavailable LETTIERE, A NATANAEL PA Unavailable Unavailable LETTIERE, A NATANAEL PA Unavailable Unavailable LETTIERE, A NATANAEL PA Unavailable Unavailable LETTIERE, A NATANAEL PA Unavailable Unavailable LETTIERE, A NATANAEL PA Unavailable Unavailable LETTIERE, A NATANAEL PA Unavailable Unavailable LETTIERE, A NATANAEL PA Unavailable Unavailable LETTIERE, A NATANAEL PA Unavailable Unavailable LETTIERE, A NATANAEL PA Unavailable Unavailable LETTIERE, A NATANAEL PA Unavailable Unavailable LETTIERE, A NATANAEL PA Unavailable Unavailable LETTIERE, A NATANAEL PA Unavailable Unavailable LETTIERE, A NATANAEL PA Unavailable Unavailable LETTIERE, A NATANAEL PA Unavailable Unavailable Re-disclosure Warning The records that you are about to access may contain information from federally-assisted alcohol or drug abuse programs. If such information is present, then the following federally mandated warning applies: This information has been disclosed to you from records protected by federal confidentiality rules (42 CFR part 2). The federal rules prohibit you from making any further disclosure of this information unless further disclosure is expressly permitted by the written consent of the person to whom it pertains or as otherwise permitted by 42 CFR part 2. A general authorization for the release of medical or other information is NOT sufficient for this purpose. The Federal rules restrict any use of the information to criminally investigate or prosecute any alcohol or drug abuse patient.The records that you are about to access may contain highly sensitive health information, the redisclosure of which is protected by Article 27-F of the [facility] Public Health law. If you continue you may have access to information: Regarding HIV / AIDS; Provided by facilities licensed or operated by the [facility] Office of Mental Health; or Provided by the [facility] Office for People With Developmental Disabilities. If such information is present, then the following [facility] mandated warning applies: This information has been disclosed to you from confidential records which are protected by state law. State law prohibits you from making any further disclosure of this information without the specific written consent of the person to whom it pertains, or as otherwise permitted by law. Any unauthorized further disclosure in violation of state law may result in a fine or senior living sentence or both. A general authorization for the release of medical or other information is NOT sufficient authorization for further disc losure. Allergies and Adverse Reactions Type Description Substance Reaction Status Data Source(s ) Allergy to substance Allergy to substance Allergy to substance [facility] ([facility]) Encounters Encounter Providers Location Date Indications Data Source(s ) Alka Mederos PA-C: [address] [place] [id number], Ph. Attender: Alka [facility] Medical 05/25/2020 12:00:00 AM EST [facility] ([facility]) Outpatient Attender: Vianney Garcia PA-C 04/15 01:20:00 PM EST - 05/01/2020 01:20:00 PM EST [facility] Outpatient Attender: Tyson Lombardi MD Main office - [place] 04/25/2020 01:30:00 PM EST [facility] ([facility]) Outpatient Attender: NATANAEL arriaga 03/22/2020 09:50:00 AM EDT [facility] ([facility] Outpatient Attender: Tyson Lombardi MD Main office - [place] 03/07/2020 09:30:00 AM EDT [facility] ([facility]) Outpatient Attender: Vianney Garcia PA-C 09/2019 02:40:00 PM EDT - 02/17/2020 02:40:00 PM EDT [facility] Outpatient Attender: Vianney Garcia PA-C 08/2019 04:02:00 PM EDT - 09/16/2019 04:02:00 PM EDT [facility] Outpatient 09/12/2019 04:46:00 AM EDT [facility] Imaging Outpatient Attender: Vianney Garcia PA-C 08/14 10:58:00 AM EDT - 09/09/2019 10:58:00 AM EDT [facility] Outpatient Attender: Vianney Garcia PA-C 07/17 03:28:00 PM EST - 08/04/2019 03:28:00 PM EST [facility] Outpatient Attender: Vianney Garcia PA-C Family Practice 07/17 02:20:00 PM EST [facility] ([facility]) Medications Medication Brand Name Start Date Product Form Dose Route Admi nistrative Instructions Pharmacy Instructions Status Indications Reaction Description Data Source(s) oxcarbazepine 300 MG Oral Tablet Oxcarbazepine 04/25/2020 12:00:00 AM EST active [facility] ([facility]) Amoxicillin 875 MG Oral Tablet Amoxicillin 03/22/2020 12:00:00 AM EDT active [facility] ([facility]) No Active Medications 03/22/2020 12:00:00 AM EDT completed [facility] ([facility]) Lancets Super Thin 28G 09/09/2019 12:00:00 AM EDT active [facility] Onetouch Verio 09/09/2019 12:00:00 AM EDT com pleted [facility] ([facility]) Onetouch Verio 09/09/2019 12:00:00 AM EDT act logan [facility] ([facility]) Onetouch Verio 09/09/2019 12:00:00 AM EDT act logan [facility] ([facility]) No Active Medications 08/04/2019 12:00:00 AM EST active [facility] ([facility]) Insurance Providers Payer name Policy type / Coverage type Policy ID Covered democrat ID Covered democrat's relationship to herbert Policy Herbert Plan Information [facility] [id number] SP [id number] [facility]) O [id number] S [id number] [facility] COMM[facility]AN [id number] [facility] [id number] SP [id number] EMEDNY [id number] SP [id number] [facility] [place] [id number] 18 [id number] MEDICAID [id number] SP [id number] MEDICAID [id number] S [id number] [facility] [id number] SP [id number] Problems, Conditions, and Diagnoses Code Display Name Description Problem Type Effective Dates Data Source(s) Other seizures Other seizures Problem 03/07/2020 12:00: 00 AM EDT [facility] ([facility]) [id number] Migraine without aura, not refractory Mi graine without aura, not refractory Problem 03/07/2020 12:00:00 AM EDT [facility] ([facility]) [id number] Localization-related epilepsy Localization-related epi lepsy Problem 03/07/2020 12:00:00 AM EDT [facility] ([facility]) Z23 Encounter for immunization Encounter for immunization Diagnosis 05/01/2020 01:20:00 PM [facility] G4089 Other seizures Other seizures Diagnosis 05/01/2020 01:20: 00 PM [facility] R55 Syncope and collapse Syncope and collapse Diagnosis 09/09/2019 10:58:00 AM EDT [facility] Z836 Family history of other diseases of the respiratory system Family history of other diseases of the respiratory system Diagnosis 08/04/2019 03:28:00 PM [facility] L739 Follicular disorder, unspecified Follicular diso rder, unspecified Diagnosis 08/04/2019 03:28:00 PM [facility] M542 Cervicalgia Cervicalgia Diagnosis 08/04/2019 03:28:00 PM [facility] F419 Anxiety disorder, unspecified Anxiety disorder, unspec ified Diagnosis 08/04/2019 03:28:00 PM [facility] F339 Major depressive disorder, recurrent, un specified Major depressive disorder, recurrent, unspecified Diagnosis 08/04/2019 03:28:00 PM [facility] Z0001 Encounter for general adult medical exam ination with abnormal findings Encounter for general adult medical examination with abnormal findings Diagnosis 08/04/2019 03:28:00 PM [facility] Surgeries/Procedures Procedure Description Date Indications Data Source(s) MRI Brain W/O Contrast, Followed By Contrast 0 12:00:00 AM EDT [facility] ([facility] MRI Brain W/O Contrast, Followed By Contrast 0 12:00:00 AM EDT [facility] ([facility] ) ELECTROENCEPHALOGRAM W/REC AWAKE&ASLEEP 03/08/2020 12: 00:00 AM EDT [facility] ([facility] ) ELECTROENCEPHALOGRAM W/REC AWAKE&ASLEEP 03/08/2020 12: 00:00 AM EDT [facility] ([facility] Brief Emotional/Behav Assessment W/ Scoring Doc Per Standard Inst 08/04/2019 12:00:00 AM EST [facility] ([facility]) Social History Code Duration Value Status Description Data Source(s ) Smoking 03/22/2020 12:00:00 AM EDT Patient has never smoked co mpleted Patient has never smoked [facility] ([facility], [facility]) Vital Signs ID Date Data Source UNK Name Value Range Interpretation Code Description Data Source(s) Body surface area Derived from formula 2.21 m2 2.21 m2 [facility] ([facility]) Body mass index (BMI) [Ratio] 31.1 kg/m2 31.1 k g/m2 [facility] ([facility]) Body height 71 [in_i] 71 [in_i] [facility] 5'11" Body weight 101.153 kg 101.153 kg [facility] ([facility]) Body weight 223.00 [lb_av] 223.00 [lb_av] [facility] ([facility]) Oxygen saturation in Arterial blood by Pulse oximetry 98 % 98 % [facility] ([facility]) Respiratory rate 16 /min 16 /min [facility] ( [facility]) Body temperature 97.8 [degF] 97.8 [degF] [facility] ([facility]) Heart rate 77 /min 77 /min [facility] ([facility]) Diastolic blood pressure 70 mm[Hg] 70 mm[Hg] [facility] ([facility]) Systolic blood pressure 118 mm[Hg] 118 mm[Hg] M [facility] ([facility]) Body mass index (BMI) [Ratio] 27.9 kg/m2 27.9 k g/m2 [facility] ([facility], [facility]) Body height 71 [in_i] 71 [in_i] [facility] ([facility], [facility]) 5'11" Body weight 200.00 [lb_av] 200.00 [lb_av] [facility] T ([facility], [facility]) Body temperature 98.3 [degF] 98.3 [degF] [facility] ([facility]) Oxygen saturation in Arterial blood by Pulse oximetry 98 % 98 % [facility] Heart rate 94 /min 94 /min [facility] ([facility], [facility]) Diastolic blood pressure 80 mm[Hg] 80 mm[Hg] [facility]) Systolic blood pressure 133 mm[Hg] 133 mm[Hg] [facility]) [place] body weight 172 [lb_av] 172 [lb_av] [facility] ([facility] ) Body mass index (BMI) [Ratio] 27.9 kg/m2 27.9 k g/m2 [facility] ([facility] ) Body weight 200.00 [lb_av] 200.00 [lb_av] [facility] ([facility] ) Body height 71 [in_i] 71 [in_i] [facility] ([facility] ) 5'11" Respiratory rate 14 /min 14 /min [facility] ( [facility] ) Heart rate 78 /min 78 /min [facility] ([facility] ) Diastolic blood pressure 75 mm[Hg] 75 mm[Hg] [facility] ([facility]) Systolic blood pressure 120 mm[Hg] 120 mm[Hg] M EDENT ([facility]) Body surface area Derived from formula 2.16 m2 2.16 m2 [facility] ([facility]) Body mass index (BMI) [Ratio] 31.0 kg/m2 31.0 k g/m2 [facility] ([facility]) Body height 70 [in_i] 70 [in_i] [facility] ([facility]) 5'10" Body weight 98.034 kg 98.034 kg [facility] ([facility]) Body weight 216.12 [lb_av] 216.12 [lb_av] [facility] ([facility]) Oxygen saturation in Arterial blood by Pulse oximetry 99 % 99 % [facility] ([facility]) Respiratory rate 16 /min 16 /min [facility] ( [facility]) Body temperature 97.5 [degF] 97.5 [degF] [facility] ([facility]) Heart rate 68 /min 68 /min [facility] ([facility]) Diastolic blood pressure 80 mm[Hg] 80 mm[Hg] [facility] ([facility]) Systolic blood pressure 120 mm[Hg] 120 mm[Hg] M [facility] ([facility]) Body surface area 2.16 m2 2.16 m2 [facility] ([facility]) Body surface area Derived from formula 2.15 m2 2.15 m2 [facility] ([facility]) Body mass index (BMI) [Ratio] 30.6 kg/m2 30.6 k g/m2 [facility] ([facility]) Body height 70 [in_i] 70 [in_i] [facility] ([facility] [place]) 5'10" Body weight 96.787 kg 96.787 kg [facility] ([facility] [place]) Body weight 213.38 [lb_av] 213.38 [lb_av] [facility] ([facility]) Oxygen saturation in Arterial blood by Pulse oximetry 97 % 97 % [facility] ([facility]) Respiratory rate 16 /min 16 /min [facility] ( [facility]) Body temperature 98.4 [degF] 98.4 [degF] [facility] ([facility]) Heart rate 64 /min 64 /min [facility] ([facility]) Diastolic blood pressure 80 mm[Hg] 80 mm[Hg] [facility] ([facility]) Systolic blood pressure 118 mm[Hg] 118 mm[Hg] M [facility] ([facility]) Body surface area 2.15 m2 2.15 m2 [facility]
--- OUTSIDE RECORDS SUMMARY | 2020-07-13 18:12 | CCD | Continuity of Care Document ---
Author Author Darin PAREDES PA-C Organization Unknown Address [address] [place] [address] Phone [phone] Care Team Providers Care Door Person Name Role Phone Vianney Paredes PA-C AUTM [phone] [facility] AUTM Problems Description No Information Available Social History Type Date Description Comments Sex Unknown ETOH Use Denies alcohol use Tobacco Use Start: Unknown Patient has never smoked Recreational Drug Use Regularly uses Marijuana Allergies, Adverse Reactions, Alerts Active Allergies Reaction Severity Comments Date Shellfish-Derived Products throat closes, swelling 08/04/2019 Medications Active Medications SIG Qnty Indications Ordering Provide r Date Onetouch Verio w/Device Kit use as directed 1x daily 1units Jason Bacon MD 09/09/2019 Lancets Super Thin 28G Thin 28G Mi sc use as directed to check bs once daily 100units Jason stewart MD 09/09/2019 Onetouch Verio Strips as Directed Daily 100Strip Vianney Paredes PA-C 09/09/2019 Oxcarbazepine 300mg Tablets Tyson Lombardi Immunizations Description No Information Available Vital Signs Date Vital Result Comment 05/01/2020 1:28pm BP Systolic 118 mmHg BP Diastolic 70 mmHg Heart Rate 77 /min Body Temperature 97.8 F Respiratory Rate 16 /min O2 % BldC Oximetry 98 % Weight 223.00 lb Weight 101.153 kg Height 71 inches 5'11" BMI (Body Mass Index) 31.1 kg/m2 BSA (Body Surface Area) 2.21 m2 09/09/2019 11:05am BP Systolic 120 mmHg BP Diastolic 80 mmHg Heart Rate 68 /min Body Temperature 97.5 F Respiratory Rate 16 /min O2 % BldC Oximetry 99 % Weight 216.12 lb Weight 98.034 kg Height 70 inches 5'10" BMI (Body Mass Index) 31.0 kg/m2 BSA (Body Surface Area) 2.16 m2 Results Description No Information Available Procedures Description No Information Available Medical Devices Description No Information Available Encounters Description No Information Available Assessments Date Code Description Provider 05/01/2020 G40.89 Other seizures CED Toribio 05/01/2020 Z23 Encounter for immunization Vianney Paredes PA-C 02/17/2020 G40.89 Other seizures CED Toribio Plan of Treatment 05/01/2020 - Vianney Paredes PA-C* G40.89 Other seizures* Comments:* He had 2 seizures in the beginning of April and was taken to [facility] via ambulance. Following with neurologist. He does not like Trileptal, advised him to disc uss with neurologist. He was cautioned that stopping anti-seizure medication abruptly can trigger seizures. If he has recurrent symptoms, he should go to ER. * Z23 Encounter for immunization* Comments:* He received flu shot. * All * Follow up:* 6 months or as needed Functional Status Description No Information Available Mental Status Description No Information Available Referrals Refer to Reason for Referral Status Appt Date [facility] 25 year old male with his tory of syncope and recent seizures. Patient was seen at [facility]. Please evaluate and treat. Thank you. Closed [facility] [place], [place] [id number] [phone]
[2020-07-13 20:45] VITALS: BP 156/72
[2020-07-13] MEDS ORDERED: OXCA300T14 PO (21:29)
== END 2020-07-13 21:51 | disposition home or self-care (01) ==
LOC: M ED 15:35 → EDBD 15:35 → EDSEX 15:35 → M ED 21:51
DX: G40.909 Epilepsy, unspecified, not intractable, without status epilepticus (principal); F12.20 Cannabis dependence, uncomplicated; Z79.899 Other long term (current) drug therapy; Z91.018 Allergy to other foods
CPT/HCPCS: 80047; 96365; 96375; 99285; J1953; J2060

== ENCOUNTER 2020-08-14 14:20 | Emergency (ER) | payer OTHER ==
[~2020-08-14] VITALS: Ht 182.9 cm; Wt 91.8 kg
[~2020-08-14 14:20] MED LIST changes: +OXCA300T14 PO
[2020-08-14] MEDS ORDERED: levETIRAcetam INJection 1,000 MG in D5W 100 ML IV ONE (14:45)
[2020-08-14 15:30] LABS: BASO % 0.3 % (0.0-1.0); EOS # 0.1 10^3/uL (0.0-0.5); EOS % 0.7 % (0.0-3.0); HEMATOCRIT 49.2 % (42.0-52.0); HEMOGLOBIN 15.9 g/dl (13.5-17.5); LYMPH % 8.6 % (24.0-44.0); MEAN CORPUSCULAR HEMOGLOBIN 27.2 pg (27.0-33.0); MEAN CORPUSCULAR HGB CONC 32.3 g/dl (32.0-36.5); MEAN CORPUSCULAR VOLUME 84.1 fl (80.0-96.0); MONO # 0.5 10^3/uL (0.0-0.8); MONO % 4.4 % (2.0-8.0); NEUTROPHILS # 9.7 10^3/uL (1.5-8.5); NEUTROPHILS % 85.6 % (36.0-66.0); PLATELET COUNT, AUTOMATED 281 10^3/uL (150-450); RED BLOOD COUNT 5.85 10^6/uL (4.30-6.10); WHITE BLOOD COUNT 11.3 10^3/uL (4.0-10.0)
[2020-08-14 15:52] LABS: ALBUMIN 4.4 GM/DL (3.2-5.2); ALT/SGPT 22 U/L (12-78); BILIRUBIN,DIRECT 0.1 MG/DL (0.0-0.2); BILIRUBIN,TOTAL 0.4 MG/DL (0.2-1.0); BLOOD UREA NITROGEN 17 MG/DL (7-18); CALCIUM LEVEL 9.5 MG/DL (8.5-10.1); CARBON DIOXIDE LEVEL 28 MEQ/L (21-32); CHLORIDE LEVEL 105 MEQ/L (98-107); CREATININE FOR GFR 1.37 MG/DL (0.70-1.30); GLOMERULAR FILTRATION RATE > 60.0 (>60); GLUCOSE, FASTING 86 MG/DL (70-100); MAGNESIUM LEVEL 2.2 MG/DL (1.8-2.4); PHOSPHORUS LEVEL 1.7 MG/DL (2.5-4.9); POTASSIUM SERUM 5.2 MEQ/L (3.5-5.1); SODIUM LEVEL 136 MEQ/L (136-145); TOTAL PROTEIN 8.3 GM/DL (6.4-8.2)
[2020-08-14] MEDS ORDERED: DIVALPROEX 500 MG TAB PO ONE (17:00)
[2020-08-14] MEDS ORDERED: SOD POLYSTYRENE SULFONATE SUSP 15 GM/60 ML UD PO ONE (17:00)
[2020-08-14] MEDS ORDERED: DEPA1TAB3 PO (17:03)
[2020-08-14 17:07] VITALS: BP 121/73
--- NOTE | 2020-08-15 14:21 | ECGEPIP ---
[facility] - ED Test Date: 2020-08-14 Pat Name: REJI WHITMAN Department: Room: - Gender: Male Workgroup Leader: KAILASH : 1995 Requested By: MAN Pires Order Number: [id number] Reading MD: Sheba Robles Measurements Intervals [place] Rate: 76 P: 52 CO: 148 QRS: 60 QRSD: 90 T: 30 QT: 380 QTc: 427 Interpretive Statements Normal sinus rhythm early repolarization increased rate 04/23/20 Electronically Signed on 08-15-2020 14:21:28 EST by Sheba Robles
== END 2020-08-14 17:36 | disposition home or self-care (01) ==
LOC: M ED 14:20 → EDBD 14:20 → M ED 17:36
DX: G40.909 Epilepsy, unspecified, not intractable, without status epilepticus (principal); E87.5 Hyperkalemia; Z91.19 Patient's noncompliance with other medical treatment and regimen; D57.3 Sickle-cell trait; F90.9 Attention-deficit hyperactivity disorder, unspecified type; Z79.899 Other long term (current) drug therapy; Z91.018 Allergy to other foods; F12.20 Cannabis dependence, uncomplicated
CPT/HCPCS: 36415; 80048; 80076; 81001; 83735; 84100; 85025; 93005; 94760; 96365; 96366; 99284; J1953

== ENCOUNTER 2020-10-15 21:27 | Inpatient (IN) | payer OTHER ==
[~2020-10-15] VITALS: Ht 180.3 cm; Wt 116.8 kg
[~2020-10-15 21:27] MED LIST changes: +DEPA1TAB3 PO
[2020-10-15 23:01] LABS: HEMATOCRIT 49.7 % (42.0-52.0); HEMOGLOBIN 16.4 g/dl (13.5-17.5); MEAN CORPUSCULAR HEMOGLOBIN 28.2 pg (27.0-33.0); MEAN CORPUSCULAR VOLUME 85.4 fl (80.0-96.0); PLATELET COUNT, AUTOMATED 342 10^3/uL (150-450); RED BLOOD COUNT 5.82 10^6/uL (4.30-6.10); WHITE BLOOD COUNT 23.4 10^3/uL (4.0-10.0)
--- NOTE | 2020-10-15 23:06 | REPVR ---
PROCEDURE INFORMATION: Exam: CT Head Without Contrast Exam date and time: 10/15/2020 10:41 PM Age: 25 years old Clinical indication: Pain; Headache; Additional info: Seizure, headache, unknown trauma TECHNIQUE: Imaging protocol: Computed tomography of the head without contrast. Axial and coronal reformatted images were created and reviewed. Radiation optimization: All CT scans at this facility use at least one of these dose optimization techniques: automated exposure control; mA and/or kV adjustment per patient size (includes targeted exams where dose is matched to clinical indication); or iterative reconstruction. COMPARISON: CT Head without contrast 04/22/2020 1:42 PM FINDINGS: Brain: No CT evidence of acute intracranial hemorrhage or acute territorial infarction. No significant mass effect or midline shift. Basal cisterns patent. Cerebral ventricles: Normal in size and configuration. Bones/joints: No acute osseous abnormality. Paranasal sinuses: Unremarkable. No fluid levels. Mastoid air cells: Grossly unremarkable. Soft tissues: Grossly unremarkable. IMPRESSION: No CT evidence of acute intracranial pathology. Electronically signed by: Nikunj Shipley On 10/15/2020 23:05:41 PM
--- NOTE | 2020-10-15 23:12 | REPVR ---
PROCEDURE INFORMATION: Exam: CT Cervical Spine Without Contrast Exam date and time: 10/15/2020 10:41 PM Age: 25 years old Clinical indication: Neck pain; Additional info: Seizure, headache, unknown trauma TECHNIQUE: Imaging protocol: Computed tomography images of the cervical spine without contrast. Axial, coronal and sagittal reformatted images were created and reviewed. Radiation optimization: All CT scans at this facility use at least one of these dose optimization techniques: automated exposure control; mA and/or kV adjustment per patient size (includes targeted exams where dose is matched to clinical indication); or iterative reconstruction. COMPARISON: No relevant prior studies available. FINDINGS: Bones/joints: Straightening of the normal cervical lordosis. No CT evidence of acute fracture, dislocation or subluxation. Alignment anatomic. Vertebral body heights maintained. Discs/Spinal canal/Neural foramina: Intervertebral disc spaces preserved. No significant spinal canal or neural foraminal stenosis. Lungs: Grossly unremarkable. Soft tissues: Grossly unremarkable. IMPRESSION: 1. No CT evidence of acute cervical spine traumatic injury. 2. Additional findings, as above. Electronically signed by: Nikunj Shipley On 10/15/2020 23:11:47 PM
[2020-10-15 23:53] LABS: ALBUMIN 4.4 GM/DL (3.2-5.2); ALT/SGPT 43 U/L (12-78); BILIRUBIN,TOTAL 0.4 MG/DL (0.2-1.0); BLOOD UREA NITROGEN 17 MG/DL (7-18); CALCIUM LEVEL 9.2 MG/DL (8.5-10.1); CARBON DIOXIDE LEVEL 27 MEQ/L (21-32); CHLORIDE LEVEL 104 MEQ/L (98-107); CREATININE FOR GFR 1.34 MG/DL (0.70-1.30); GLOMERULAR FILTRATION RATE > 60.0 (>60); GLUCOSE, FASTING 72 MG/DL (70-100); MAGNESIUM LEVEL 2.3 MG/DL (1.8-2.4); POTASSIUM SERUM 5.9 MEQ/L (3.5-5.1); SODIUM LEVEL 136 MEQ/L (136-145); TOTAL PROTEIN 8.7 GM/DL (6.4-8.2); VALPROIC ACID (DEPAKOTE) < 3.0 UG/ML (50.0-100.0)
[2020-10-16] VITALS (8 sets, daily range): BP systolic 105–142; BP diastolic 47–65
[2020-10-16] MEDS ORDERED: LORazepam 2 MG/ML VIAL As Ordered ONE (03:34)
[2020-10-16] MEDS ORDERED: levETIRAcetam INJection 1,000 MG in D5W 100 ML IV ONE (03:35)
[2020-10-16] MEDS ORDERED: LORazepam 2 MG/ML VIAL IM STA (03:35)
[2020-10-16] MEDS ORDERED: MIDAZOLAM 5MG/ML 1ML VIAL (J2250 PER 1MG) As Ordered ONE (03:52)
[2020-10-16] MEDS ORDERED: MIDAZOLAM 5MG/ML 1ML VIAL (J2250 PER 1MG) IM ONE ×2 (03:55→04:05)
[2020-10-16] MEDS ORDERED: diazePAM 10MG/2ML SYRINGE (J3360 PER 5MG) IV ONE (04:10)
[2020-10-16] MEDS ORDERED: diazePAM 10MG/2ML SYRINGE (J3360 PER 5MG) As Ordered ONE (04:11)
[2020-10-16] MEDS ORDERED: MOM 30ML SUSPENSION UDC PO PRN (04:40)
[2020-10-16] MEDS ORDERED: MAALOX 30 ML SUSP *UDC PO PRN (04:40)
[2020-10-16] MEDS ORDERED: ACETAMINOPHEN TAB 650MG DOSE (2X325MG) PO PRN (04:40)
[2020-10-16] MEDS ORDERED: dexmedeTOMidine 200 MCG in IV 1 EA IV SCH (04:40)
[2020-10-16 05:12] LABS: RSV AMPLIFICATION NEGATIVE (NEGATIVE)
--- NOTE | 2020-10-16 05:14 | HPEPDOC ---
[facility] Medical History & Physical Date of Admission October 16, 2020 Date of Service: October 16, 2020 History and Physical CHIEF COMPLAINT: seizure HISTORY OF PRESENT ILLNESS: 25 yo m with a PMHx of seizure disorder and medication non compliance, presented to [facility] ER s/p witnessed tonic clonic seizure which lasted approximately 15-[address] head and C-spine were unremarkable. Per ER report, patient was being discharged home, and suddenly developed another grand mal seizures lasting less than one minute. After seizure episode, patient was post ictal, exhibiting violent thrashing movement and confusion with tongue biting. Patient received two doses of IM ativan, two doses of IM versed which calmed patient sufficiently to obtain IV access. 5 mg IV valium was administered subsequently. Anesthesia was called to bedside to assess patient for intubation for airway protection, but it was decided against intubation as oxygenation and vital signs were stable. Patient received 1000 mg IV keppra, and started on precedex infusion as recommended by anesthesia and Dr. Ramírez for a goal RAAS of -2 to -3. Patient will be admitted to ICU with close neuro check and cardiopulmonary monitoring with neurology consultation. If note discussed with patient's girlfriend at bedside. He was previously on depakote but self DC'd as it made him feel drowsy and was switched to oxcarbazepine, but she suspects he has been taking it. PAST MEDICAL HISTORY: Grand mal seizure disorder PAST SURGICAL HISTORY: per records, smokes marijuana Unable to obtain due to decreased mental state of the patient. SOCIAL HISTORY: Unable to obtain due to decreased mental state of the patient. FAMILY HISTORY: Unable to obtain due to decreased mental state of the patient. ALLERGIES: Please see below. REVIEW OF SYSTEMS: Unable to obtain due to decreased mental state of the patient. HOME MEDICATIONS: Please see below. PHYSICAL EXAMINATION: VITAL SIGNS: please see below GENERAL APPEARANCE: sedated, RAAS - 2. HEENT: pupils dilated 5 mm, EOMI. CARDIOVASCULAR: RRR, normal S1, S2, no rubs, murmurs or gallops. LUNGS: CTAB, good aeration bilaterally. No wheezes, rales, rhonchi. ABDOMEN: soft. non distended, no rigidity MUSCULOSKELETAL: no joint deformity, normal ROM EXTREMITIES: no edema, no cyanosis. NEUROLOGICAL: was seen moving all extremities, violent movement, strength 5/5 in all extremities. Speech clear. CN2-12 intact. decreased mental state subsequent to benzodiazepine administration. LABORATORY DATA: See below. IMAGING: CT c-spine (10/15/20): Bones/joints: Straightening of the normal cervical lordosis. No CT evidence of acute fracture, dislocation or subluxation. Alignment anatomic. Vertebral body heights maintained. Discs/Spinal canal/Neural foramina: Intervertebral disc spaces preserved. No significant spinal canal or neural foraminal stenosis. Lungs: Grossly unremarkable. Soft tissues: Grossly unremarkable. IMPRESSION: 1. No CT evidence of acute cervical spine traumatic injury. CT head wo contrast (10/15/20): FINDINGS: Brain: No CT evidence of acute intracranial hemorrhage or acute territorial infarction. No significant mass effect or midline shift. Basal cisterns patent. Cerebral ventricles: Normal in size and configuration. Bones/joints: No acute osseous abnormality. Paranasal sinuses: Unremarkable. No fluid levels. Mastoid air cells: Grossly unremarkable. Soft tissues: Grossly unremarkable. IMPRESSION: No CT evidence of acute intracranial pathology. MICROBIOLOGY: Please see below. ASSESSMENT: 25 yo M with grand mal seizure disorder and medication non compliance, presented to [facility] ER after a witnessed 15-25 second grand mal seizure. CT head and c spine imgaging was unremarkable. On discharge from ER developed another grand mal seizure, and required sedation with IM ativan, IM versed, IV valium and administration of 1g of keppra. Patient admitted to ICU with precedex infusion. . PLAN: Grand mal seizure with post ictal delirium - admit to ICU - s/p IM and IV benzodiazepines in divided doses: 4 mg ativan IM, 10 mg IM versed, 5 mg IV valium - anesthesia called to bedside to intubate, but at that point adequate sedation was achieved with benzodiazepines - start precedex ggt for goal RAAS -2 to -3 - s/p 1g keppra IV - I discussed with Dr. Rolon, recommends to c/w keppra 500 mg BID - order MRI brain non contrast - check urine toxicology screen - check depakote level - telemetry and continuous oximetry Dispo: pending clinical improvement. DVT ppx: heparin 5000 units q8h Vital Signs Vital Signs Date Time Temp Pulse Resp B/P (MAP) Pulse Ox O2 Delivery O2 Flow Rate FiO2 10/15/20 22:11 100 Nasal Cannula 2.0 10/15/20 22:09 64 17 111/55 (73) 10/15/20 22:05 97.8 Laboratory Data Labs 24H Laboratory Tests 2 10/15/20 22:24: Nucleated Red Blood Cells % (auto) 0.0, Anion Gap 5L, Glomerular Filtration Rate > 60.0, Calcium Level 9.2, Magnesium Level 2.3, Total Bilirubin 0.4, Aspartate Amino Transf (AST/SGOT) 69H, Alanine Aminotransferase (ALT/SGPT) 43, Alkaline Phosphatase 77, Total Protein 8.7H, Albumin 4.4, Albumin/Globulin Ratio 1.0, Valproic Acid (Depakene) Level < 3.0L 10/16/20 03:28: 10/16/20 04:05: Bedside Glucose (Misc Panel) 190H 10/16/20 04:18: CBC/BMP Laboratory Tests 10/15/20 22:24 Home Medications Scheduled Levetiracetam (Keppra) 500 Mg Tablet, 1 TAB PO BID Allergies Coded Allergies: shellfish derived (Verified Allergy, Unknown, 09/02/19) A-FIB/CHADSVASC A-FIB History Current/History of A-Fib/PAF?: No DONNY CALABRESE MD October 16, 2020 05:14
[2020-10-16] MEDS ORDERED: DIVA500T94 PO (07:50)
[2020-10-16] MEDS ORDERED: OXCA300T14 PO (07:57)
[2020-10-16] MEDS ORDERED: COMMENTS (08:00)
[2020-10-16] MEDS ORDERED: LORazepam 2 MG/ML VIAL IV PRN (09:00)
[2020-10-16] MEDS ORDERED: NS 1,000 ML IV ONE (09:00)
[2020-10-16] MEDS ORDERED: DOCUSATE SODIUM 100MG CAPSULE PO SCH (09:00)
[2020-10-16 09:27] LABS: BASO % 0.1 % (0.0-1.0); HEMATOCRIT 44.2 % (42.0-52.0); HEMOGLOBIN 15.1 g/dl (13.5-17.5); MEAN CORPUSCULAR HEMOGLOBIN 28.7 pg (27.0-33.0); MEAN CORPUSCULAR HGB CONC 34.2 g/dl (32.0-36.5); MEAN CORPUSCULAR VOLUME 83.9 fl (80.0-96.0); MONO % 5.1 % (2.0-8.0); NEUTROPHILS # 17.3 10^3/uL (1.5-8.5); NEUTROPHILS % 89.3 % (36.0-66.0); PLATELET COUNT, AUTOMATED 320 10^3/uL (150-450); RED BLOOD COUNT 5.27 10^6/uL (4.30-6.10); WHITE BLOOD COUNT 19.4 10^3/uL (4.0-10.0)
[2020-10-16 09:55] LABS: BLOOD UREA NITROGEN 21 MG/DL (7-18); CALCIUM LEVEL 9.4 MG/DL (8.5-10.1); CARBON DIOXIDE LEVEL 26 MEQ/L (21-32); CHLORIDE LEVEL 104 MEQ/L (98-107); CREATININE FOR GFR 1.57 MG/DL (0.70-1.30); GLOMERULAR FILTRATION RATE > 60.0 (>60); GLUCOSE, FASTING 85 MG/DL (70-100); POTASSIUM SERUM 4.5 MEQ/L (3.5-5.1); SODIUM LEVEL 138 MEQ/L (136-145)
[2020-10-16] MEDS: HEPARIN SOD (PORCINE) 5000UNITS/ML 1ML VIAL/SYRINGE SC SCH ×3 (10:08→22:03)
[2020-10-16 12:58] LABS: CPK CREATINE PHOSPHOKINASE 745 U/L (39-308)
[2020-10-16] MEDS ORDERED: SODIUM CHLORIDE 0.9% 1000ML IV ONE (13:45)
[2020-10-16] MEDS: NS 1,000 ML IV SCH (14:08)
[2020-10-16] MEDS: levETIRAcetam INJection 500 MG in D5W MINI-BAG PLUS 100 ML IV SCH (17:34)
--- NOTE | 2020-10-16 17:48 | ECGEPIP ---
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
[2020-10-17] MEDS: NS 1,000 ML IV SCH (02:51)
[2020-10-17] MEDS: levETIRAcetam INJection 500 MG in D5W MINI-BAG PLUS 100 ML IV SCH (04:34)
[2020-10-17] MEDS: HEPARIN SOD (PORCINE) 5000UNITS/ML 1ML VIAL/SYRINGE SC SCH (05:22)
[2020-10-17 06:00] VITALS: BP 120/67
[2020-10-17 06:45] LABS: BASO % 0.1 % (0.0-1.0); EOS % 0.1 % (0.0-3.0); HEMOGLOBIN 13.3 g/dl (13.5-17.5); LYMPH # 1.8 10^3/uL (1.5-5.0); LYMPH % 15.9 % (24.0-44.0); MEAN CORPUSCULAR HEMOGLOBIN 27.9 pg (27.0-33.0); MEAN CORPUSCULAR HGB CONC 33.3 g/dl (32.0-36.5); MONO # 0.9 10^3/uL (0.0-0.8); MONO % 7.8 % (2.0-8.0); NEUTROPHILS # 8.5 10^3/uL (1.5-8.5); NEUTROPHILS % 75.7 % (36.0-66.0); PLATELET COUNT, AUTOMATED 295 10^3/uL (150-450); RED BLOOD COUNT 4.76 10^6/uL (4.30-6.10); WHITE BLOOD COUNT 11.2 10^3/uL (4.0-10.0)
[2020-10-17 07:13] LABS: BLOOD UREA NITROGEN 15 MG/DL (7-18); CALCIUM LEVEL 8.8 MG/DL (8.5-10.1); CARBON DIOXIDE LEVEL 28 MEQ/L (21-32); CHLORIDE LEVEL 108 MEQ/L (98-107); CREATININE FOR GFR 1.15 MG/DL (0.70-1.30); GLOMERULAR FILTRATION RATE > 60.0 (>60); GLUCOSE, FASTING 109 MG/DL (70-100); POTASSIUM SERUM 3.5 MEQ/L (3.5-5.1); SODIUM LEVEL 140 MEQ/L (136-145)
[2020-10-17] MEDS ORDERED: KEPP1TAB PO (08:14)
--- NOTE | 2020-10-17 09:40 | REP ---
INDICATION: grand mal seizure. COMPARISON: Comparison is made with CT studies of the brain from October 15, 2020 and April 22, 2020.. TECHNIQUE: Axial, coronal, and sagittal imaging planes are utilized for T1 and T2-weighted scans. Sequences include spin-echo, fast spin echo, FLAIR, and diffusion weighted sequences. FINDINGS: No bony calvarial lesion is seen. Craniocervical junction and upper cervical cord are normal in appearance. There is no MR evidence of significant paranasal sinus disease. No intraorbital abnormality is seen. The lateral, third, and fourth ventricles are normal in size and position. Harvey-white differentiation pattern is intact above and below the tentorium. There is no evidence of intracranial hemorrhage. No mass, infarction, extra-axial fluid collection or midline shift is seen. Diffusion-weighted scans show no evidence to suggest acute ischemia. No abnormal white matter lesion is seen. IMPRESSION: Negative noncontrast brain MRI study. <Electronically signed by Jabier Gar > 10/17/20 0936
--- NOTE | 2020-10-17 19:34 | DS.PDOC ---
Discharge Summary General Date of Admission October 16, 2020 at 04:39 Date of Discharge 10/17/20 Discharge Summary PROCEDURES PERFORMED DURING STAY: [None]. DISCHARGE DIAGNOSES: Seizure with post ictal delirium COMPLICATIONS/CHIEF COMPLAINT: Seizure. HOSPITAL COURSE: 25 yo M with grand mal seizure disorder for [address] Lombardi with medication non compliance, presented to [facility] ER after a witnessed 1 5-25 second [address] seizure. CT head and c spine imgaging was unremarkable. He was in the porcess of being discharged from ER when he developed another grand mal seizure, and required sedation with IM ativan, IM versed, IV valium and administration of 1g of keppra. Post seizure he became agitated combative and was having post ictal delirium. Patient was admitted to ICU with precedex infusion. He ultimately did not need the precedex and calmed down with the benzos. He Had an MRI done which was negative . He was maintained on Keppra 500 mg bid. He did not have any further seizures in 24 hours as is being discharged home in a stable condition to follow up with neurology. DISCHARGE MEDICATIONS: Please see below. ALLERGIES: Please see below. PHYSICAL EXAMINATION ON DISCHARGE: VITAL SIGNS: Please see below. GENERAL APPEARANCE:NAD, awake, alert and oriented. HEENT: NC, AT, moist mucus membranes. CARDIOVASCULAR: RRR, normal S1, S2, no rubs, murmurs or gallops. LUNGS: CTAB, good aeration bilaterally. No wheezes, rales, rhonchi. ABDOMEN: soft. non distended, no rigidity MUSCULOSKELETAL: no joint deformity, normal ROM EXTREMITIES: no edema, no cyanosis. NEUROLOGICAL: strength 5/5 in all extremities. Speech clear. CN2-12 intact. LABORATORY DATA: Please see below. IMAGING: MRI brain without contrast: No bony calvarial lesion is seen. Craniocervical junction and upper cervical c ord are normal in appearance. There is no MR evidence of significant paranasal sinus disease. No intraorbital abnormality is seen. The lateral, third, and fourth ventricles are normal in size and position. Harvey-white differentiation pattern is intact above and below the tentorium. There is no evidence of intracranial hemorrhage. No mass, infarction, extra-axial fluid collection or midline shift is seen. Diffusion-weighted scans show no evidence to suggest acute ischemia. No abnormal white matter lesion is seen. IMPRESSION: Negative noncontrast brain MRI study. ACTIVITY: [As tolerated]. DIET: As tolerated DISPOSITION: 01 Home, Self-Care. DISCHARGE INSTRUCTIONS: Neurology in 2 weeks PMD in 2 weeks DISCHARGE CONDITION: [Stable]. TIME SPENT ON DISCHARGE: 35 minutes. Vital Signs/I&Os Vital Signs Date Time Temp Pulse Resp B/P (MAP) Pulse Ox O2 Delivery O2 Flow Rate FiO2 10/17/20 06:00 98.0 74 18 120/67 (84) 96 Room Air 10/16/20 09:13 2.0 I&O- Last 24 Hours up to 6 AM 10/17/20 07:00 Intake Total 4405 ml Output Total 1260 ml Balance 3145 ml Laboratory Data Labs 24H Laboratory Tests 2 10/17/20 06:33: Immature Granulocyte % (Auto) 0.4, Neutrophils (%) (Auto) 75.7H, Lymphocytes (%) (Auto) 15.9L, Monocytes (%) (Auto) 7.8, Eosinophils (%) (Auto) 0.1, Basophils (%) (Auto) 0.1, Neutrophils # (Auto) 8.5, Lymphocytes # (Auto) 1.8, Monocytes # (Auto) 0.9H, Eosinophils # (Auto) 0.0, Basophils # (Auto) 0.0, Nucleated Red Blood Cells % (auto) 0.0, Anion Gap 4L, Glomerular Filtration Rate > 60.0, Calcium Level 8.8 CBC/BMP Laboratory Tests 10/17/20 06:33 Discharge Medications Scheduled Levetiracetam (Keppra) 500 Mg Tablet, 1 TAB PO BID Allergies Coded Allergies: shellfish derived (Verified Allergy, Unknown, 09/02/19) LAURA WOODS MD October 17, 2020 19:34
== END 2020-10-17 13:10 | disposition home or self-care (01) | DRG 53 ==
LOC: M ED 21:27 → M ED INP 10-16 04:39 → ENRESERV 10-16 08:56 → M ICU 10-16 09:34 → M MSPAV 10-16 18:24
PROVIDERS: ADMIT Family Medicine; ATTEND Internal Medicine Nephrology
DX: G40.409 Other generalized epilepsy and epileptic syndromes, not intractable, without status epilepticus (principal); Z91.013 Allergy to seafood; Z91.14 Patient's other noncompliance with medication regimen; Z79.899 Other long term (current) drug therapy

== ENCOUNTER 2020-12-12 13:56 | Emergency (ER) | payer OTHER ==
[~2020-12-12] VITALS: Ht 180.3 cm; Wt 97.7 kg
[~2020-12-12 13:56] MED LIST changes: +COMMENTS; +DIVA500T94 PO; +KEPP1TAB PO
[2020-12-12] MEDS ORDERED: OXCA300T14 (14:08)
[2020-12-12] MEDS ORDERED: LEVE500T5 (14:08)
[2020-12-12 14:40] LABS: BASO % 0.3 % (0.0-1.0); EOS % 0.1 % (0.0-3.0); HEMATOCRIT 45.2 % (42.0-52.0); HEMOGLOBIN 15.3 g/dl (13.5-17.5); LYMPH # 1.3 10^3/uL (1.5-5.0); LYMPH % 8.2 % (24.0-44.0); MEAN CORPUSCULAR HEMOGLOBIN 28.4 pg (27.0-33.0); MEAN CORPUSCULAR HGB CONC 33.8 g/dl (32.0-36.5); MEAN CORPUSCULAR VOLUME 83.9 fl (80.0-96.0); MONO # 0.8 10^3/uL (0.0-0.8); MONO % 5.1 % (2.0-8.0); NEUTROPHILS # 13.1 10^3/uL (1.5-8.5); NEUTROPHILS % 85.7 % (36.0-66.0); PLATELET COUNT, AUTOMATED 311 10^3/uL (150-450); RED BLOOD COUNT 5.39 10^6/uL (4.30-6.10); WHITE BLOOD COUNT 15.3 10^3/uL (4.0-10.0)
[2020-12-12] MEDS ORDERED: ACETAMINOPHEN TAB 650MG DOSE (2X325MG) PO ONE (15:10)
[2020-12-12] MEDS ORDERED: NS 1,000 ML IV ONE ×2 (15:10→16:20)
--- NOTE | 2020-12-12 15:13 | REP ---
INDICATION: fall/seizures COMPARISON: 10/15/2020 TECHNIQUE: Axial noncontrast images from the skull base to the vertex with coronal reformations. This CT examination was performed using the following dose reduction techniques: Automated exposure control, adjustment of mA and/or kv according to the patient's size, and use of iterative reconstruction technique. FINDINGS: The ventricles, sulci, and cisterns are normal in position and appearance. Harvey-white differentiation is maintained. No acute intracranial hemorrhage, mass/mass effect, pathology or trauma/injury. No evidence for acute infarction. No extra-axial fluid collection. Calvarium is intact. Paranasal sinuses and mastoid air cells are clear. IMPRESSION: Normal noncontrast head CT. No evidence for acute intracranial pathology or trauma/injury. <Electronically signed by Alexandru Huddleston > 12/12/20 [id number]
[2020-12-12 15:33] LABS: BLOOD UREA NITROGEN 18 MG/DL (7-18); CALCIUM LEVEL 9.2 MG/DL (8.5-10.1); CARBON DIOXIDE LEVEL 20 MEQ/L (21-32); CHLORIDE LEVEL 106 MEQ/L (98-107); CREATININE FOR GFR 1.39 MG/DL (0.70-1.30); GLOMERULAR FILTRATION RATE > 60.0 (>60); GLUCOSE, FASTING 99 MG/DL (70-100); POTASSIUM SERUM 4.7 MEQ/L (3.5-5.1); SODIUM LEVEL 136 MEQ/L (136-145)
[2020-12-12 15:34] LABS: ALBUMIN 4.6 GM/DL (3.2-5.2); ALT/SGPT 34 U/L (12-78); BILIRUBIN,TOTAL 0.5 MG/DL (0.2-1.0); TOTAL PROTEIN 8.3 GM/DL (6.4-8.2)
[2020-12-12 15:56] LABS: CPK CREATINE PHOSPHOKINASE 1512 U/L (39-308)
[2020-12-12] MEDS ORDERED: ONDANSETRON 4MG/2ML VIAL IV ONE (16:15)
[2020-12-12] MEDS ORDERED: levETIRAcetam 250MG TABLET (KEPPRA) PO ONE (18:35)
[2020-12-12 21:30] VITALS: BP 156/70
== END 2020-12-12 22:09 | disposition home or self-care (01) ==
LOC: M ED 13:56
DX: G40.509 Epileptic seizures related to external causes, not intractable, without status epilepticus (principal); Z91.14 Patient's other noncompliance with medication regimen; F17.200 Nicotine dependence, unspecified, uncomplicated; Z79.899 Other long term (current) drug therapy; Z91.013 Allergy to seafood
CPT/HCPCS: 70450; 80047; 80053; 80180; 82550; 85025; 96361; 96374; 99285; J2405

== ENCOUNTER 2021-04-10 17:34 | Emergency (ER) | payer OTHER ==
[~2021-04-10] VITALS: Ht 182.9 cm; Wt 110.0 kg
[~2021-04-10 17:34] MED LIST changes: +LEVE500T5; +OXCA300T14
[2021-04-10] MEDS ORDERED: levETIRAcetam INJection 500 MG in D5W MINI-BAG PLUS 100 ML IV ONE (18:05)
[2021-04-10] MEDS ORDERED: ACETAMINOPHEN 325 MG TAB PO ONE (18:40)
--- OUTSIDE RECORDS SUMMARY | 2021-04-10 18:44 | CCD | Continuity of Care Document ---
Author Author Darin Wilks Organization Unknown Address [address] [place] [address] Phone [phone] Care Team Providers Care Mail Carriers Supervisor Name Role Phone Vianney Garcia P.A.-C. AUTM [phone] Problems Active Problems Provider Date Localization-related epilepsy Tyson Lombardi M.D. Onset: Migraine without aura, not refractory Tyson Lombardi M.D. On set: 03/07/2020 Other seizures Tyson Lombardi M.D. Onset: 03/07/2020 Generalized convulsive epilepsy Tyson Lombardi M.D. Onset: 0 08/16/2020 Malaise and fatigue Tyson Lombardi M.D. Onset: 01/03/2021 Obstructive sleep apnea syndrome Tyson Lombardi M.D. Onset: 01/03/2021 Social History Type Date Description Comments Sex Unknown Tobacco Use Start: Unknown Patient has never smoked Allergies, Adverse Reactions, Alerts Active Allergies Reaction Severity Comments Date NKDA 03/07/2020 Mold 03/07/2020 Shellfish-Derived Products 0 03/07/2020 Medications Active Medications SIG Qnty Indications Ordering Provide r Date Oxcarbazepine 600mg Tablets 1 by mouth bid for 1 week, then 1.5 Tab po bid 90any Lombardi M.D. 01/03/2021 History Medications Oxcarbazepine 300mg Tablets half a tab po bid for 1 week, then 1 po bid for a week, then 1.5 Tabs po bid. 90any Lombardi M.D. 09/25/2020 - 01/03/[address] 1 by mouth twice a day 60tamaynor Lombardi M.D. 08/16/2020 - 09/25/2020 Immunizations Description No Information Available Vital Signs Date Vital Result Comment 03/07/2020 10:08am BP Systolic 120 mmHg BP Diastolic 75 mmHg Heart Rate 78 /min Respiratory Rate 14 /min Height 71 inches 5'11" Weight 200.00 lb BMI (Body Mass Index) 27.9 kg/m2 [place] Body Weight 172 lb Results Description No Information Available Procedures Date Code Description Status 01/03/2021 20428 Office/Outpatient Established Hi gh MDM 40-54 Min Completed 12/21/2020 25176 EEG Complete STD Phys/QHP>60 HR< 84 HR W/O Video Completed 12/21/2020 84245 EEG Complete STD Phys/QHP>36 HR< 60 HR W/O Video Completed 09/25/2020 06945 Phone Evaluation/Management Phys ician 11-20 Mins Completed 08/16/2020 89696 Office/Outpatient Established Mo d MDM 30-39 Min Completed Medical Devices Description No Information Available Encounters Type Date Location Provider Dx Diagnosis Office Visit 01/03/2021 12:45p [place] G40.009 Local-rel idio epi w seiz of loc onst,not ntrct,w/o stat epi G43.009 Migraine w/o aura, not intra ctable, w/o status migrainosus G40.309 Gen idiopathic epilepsy, not intractable, w/o stat epi G47.33 Obstructive sleep apnea (marcus lt) (pediatric) R53.83 Other fatigue Office Visit 09/25/2020 12:15p [place] G40.009 Local-rel idio epi w seiz of loc onst,not ntrct,w/o stat epi G43.009 Migraine w/o aura, not intra ctable, w/o status migrainosus G40.309 Gen idiopathic epilepsy, not intractable, w/o stat epi Office Visit 08/16/2020 11:45a [place] G40.009 Local-rel idio epi w seiz of loc onst,not ntrct,w/o stat epi G43.009 Migraine w/o aura, not intra ctable, w/o status migrainosus G40.89 Other seizures G40.309 Gen idiopathic epilepsy, not intractable, w/o stat epi Assessments Date Code Description Provider 01/21/2021 R06.83 Snoring Tyson Lombardi M.D. 01/03/2021 G40.009 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 01/03/2021 G47.33 Obstructive sleep apnea (adult) (pediatric) Tyson Lombardi M.D. 01/03/2021 R53.83 Other fatigue Tyson Lombardi M.D. 12/21/2020 G40.89 Other seizures Sussy NicolleOlaf pham 12/21/2020 G40.89 Other seizures EEG 09/25/2020 G40.009 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 08/16/2020 G40.009 Localization-related (focal) (partial) idiopathic epilepsy and epileptic syndromes with seizures of localized onset, not intractable, without status epilepticus Malick Encarnacion.DJez 08/16/2020 G43.009 Migraine without aur a, not intractable, without status migrainosus Olaf EncarnacionDJez 08/16/2020 G40.89 Other seizures Tyson Lombardi M.D. 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 Plan of Treatment Future Appointment(s):* 03/19/2021 2:00 pm - Tyson Lombardi M.D. at Main [facility] Functional Status Description No Information Available Mental Status Description No Information Available Referrals Refer to Dr Reason for Referral Status Appt Date Tyson Lombardi M.D. Created [facility] [address] [place] [address] [phone]
--- OUTSIDE RECORDS SUMMARY | 2021-04-10 18:44 | CCD | Continuity of Care Document ---
Author Author Darin LOMBARDI M.D. Organization Unknown Address [address] [place] [address] Phone [phone] Care Team Providers Care Director Advanced Name Role Phone Vianney Garcia P.A.-C. AUTM [phone] Problems Active Problems Provider Date Localization-related epilepsy Tyson Lombardi M.D. Onset: Migraine without aura, not refractory Tyson Lombardi M.D. On set: 03/07/2020 Other seizures Tyson Lombardi M.D. Onset: 03/07/2020 Generalized convulsive epilepsy Tyson Lombardi M.D. Onset: 0 08/16/2020 Obstructive sleep apnea syndrome Tyson Lombardi M.D. Onset: 01/03/2021 Malaise and fatigue Tyson Lombardi M.D. Onset: 01/03/2021 Snoring Tyson Lombardi M.D. Onset: 03/19/2021 Migraine with typical aura Tyson Lombardi M.D. Onset: 2020 Social History Type Date Description Comments Sex Unknown Tobacco Use Start: Unknown Patient has never smoked Allergies and adverse reactions Active Allergies Criticality Reaction | Severity Comments Date NKDA Unable to assess criticality 03/07/2020 Mold Unable to assess criticality 03/07/2020 Shellfish-Derived Products Unable to assess criticality 03/07/2020 Medications Active Medications SIG Qnty Indications Ordering Provide r Date Oxcarbazepine 600mg Tablets 1.5 Tab po bid 90any Lombardi M.D. 01/03/2021 History Medications Oxcarbazepine 300mg Tablets half a tab po bid for 1 week, then 1 po bid for a week, then 1.5 Tabs po bid. 90tabs Tyson Lombardi M.D. 09/25/2020 - 01/03/2021 Immunizations Description No Information Available Vital Signs Date Vital Result Comment 03/07/2020 10:08am BP Systolic 120 mmHg BP Diastolic 75 mmHg Heart Rate 78 /min Respiratory Rate 14 /min Height 71 inches 5'11" Weight 200.00 lb BMI (Body Mass Index) 27.9 kg/m2 [place] Body Weight 172 lb Results Description No Information Available Procedures Date Code Description Status 03/19/2021 08844 Office/Outpatient Established Mo d MDM 30-39 Min Completed 01/03/2021 52433 Office/Outpatient Established Hi gh MDM 40-54 Min Completed 12/21/2020 85636 EEG Complete STD Phys/QHP>60 HR< 84 HR W/O Video Completed 12/21/2020 36794 EEG Complete STD Phys/QHP>36 HR< 60 HR W/O Video Completed 09/25/2020 82216 Phone Evaluation/Management Phys ician 11-20 Mins Completed Medical Devices Description No Information Available Encounters Type Date Location Provider Dx Diagnosis Office Visit 03/19/2021 2:[place] G40.009 Local-rel idio epi w seiz of loc onst,not ntrct,w/o stat epi G40.309 Gen idiopathic epilepsy, not intractable, w/o stat epi R06.83 Snoring R53.83 Other fatigue G43.109 Migraine with aura, not intr actable, w/o status migrainosus Office Visit 01/03/2021 12:45p [place] G40.009 Local-rel idio epi w seiz of loc onst,not ntrct,w/o stat epi G43.009 Migraine w/o aura, not intra ctable, w/o status migrainosus G40.309 Gen idiopathic epilepsy, not intractable, w/o stat epi G47.33 Obstructive sleep apnea (marcus lt) (pediatric) R53.83 Other fatigue Office Visit 09/25/2020 12:15p [place] G40.009 Local-rel idio epi w seiz of loc onst,not ntrct,w/o stat epi G43.009 Migraine w/o aura, not intra ctable, w/o status migrainosus G40.309 Gen idiopathic epilepsy, not intractable, w/o stat epi Assessments Date Code Description Provider 03/19/2021 G40.009 Localization-related (focal) (partial) idiopathic epilepsy and epileptic syndromes with seizures of localized onset, not intractable, without status epilepticus Tyson Ali, M.D. 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 03/19/2021 R06.83 Snoring Tyson Ali, M.D. 03/19/2021 R53.83 Other fatigue Tyson Ali, M.D. 03/19/2021 G43.109 Migraine with aura, not intractable, without status migrainosus Tyson Ali, M.D. 01/21/2021 R06.83 Snoring Tyson Ali, M.D. 01/03/2021 G40.009 Localization-related (focal) (partial) idiopathic epilepsy and epileptic syndromes with seizures of localized onset, not intractable, without status epilepticus Tyson Ali, M.D. 01/03/2021 G43.009 Migraine without aur a, not intractable, without status migrainosus Tyson Ali, M.D. 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 01/03/2021 G47.33 Obstructive sleep apnea (adult) (pediatric) Tyson Ali, M.D. 01/03/2021 R53.83 Other fatigue Tyson Ali, M.D. 12/21/2020 G40.89 Other seizures Sussy Nicolle, M. D. 12/21/2020 G40.89 Other seizures EEG 09/25/2020 G40.009 Localization-related (focal) (partial) idiopathic epilepsy and epileptic syndromes with seizures of localized onset, not intractable, without status epilepticus Tyson Ali, M.D. 09/25/2020 G43.009 Migraine without aur a, not intractable, without status migrainosus Tyson Ali, M.D. 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 Plan of Treatment Future Appointment(s):* 06/04/2021 2:15 pm - Tyson Lombardi M.D. at Main office - [place] Functional Status Description No Information Available Mental Status Description No Information Available Referrals Description No Information Available
--- OUTSIDE RECORDS SUMMARY | 2021-04-10 18:44 | CCD | Continuity of Care Document ---
Author Author Darin Wilks Organization Unknown Address [address] [place] [address] Phone [phone] Care Team Providers Care Cylinder Press Operator Helper Name Role Phone Vianney Garcia P.A.-C. AUTM [phone] Problems Active Problems Provider Date Localization-related epilepsy [...] lb BMI (Body Mass Index) 27.9 kg/m2 [place] Body Weight 172 lb Results Description No Information Available Procedures Date Code Description Status 01/03/2021 99320 Office/Outpatient Established Hi gh MDM 40-54 Min Completed 12/21/2020 85329 EEG Complete STD Phys/QHP>60 HR< 84 HR W/O Video Completed 12/21/2020 93027 EEG Complete STD Phys/QHP>36 HR< 60 HR W/O Video Completed 09/25/2020 84888 Phone Evaluation/Management Phys ician 11-20 Mins Completed 08/16/2020 36472 Office/Outpatient Established Mo d MDM 30-39 Min Completed Medical Devices Description No Information Available Encounters Type Date Location Provider Dx Diagnosis Office Visit 01/03/2021 12:45p [place] G40.009 Local-rel idio epi w seiz of loc onst,not ntrct,w/o stat epi G43.009 Migraine w/o aura, not intra ctable, w/o status migrainosus G40.309 Gen idiopathic epilepsy, not intractable, w/o stat epi G47.33 Obstructive sleep apnea (marcus lt) (pediatric) R53.83 Other fatigue Office Visit 09/25/2020 12:15p [place] G40.009 Local-rel idio epi w seiz of loc onst,not ntrct,w/o stat epi G43.009 Migraine w/o aura, not intra ctable, w/o status migrainosus G40.309 Gen idiopathic epilepsy, not intractable, w/o stat epi Office Visit 08/16/2020 11:45a [place] G40.009 Local-rel idio epi w seiz of loc onst,not ntrct,w/o stat epi G43.009 Migraine w/o aura, not intra ctable, w/o status migrainosus G40.89 Other seizures G40.309 Gen idiopathic epilepsy, not intractable, w/o stat epi Assessments Date Code Description Provider 01/03/2021 G40.009 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 01/03/2021 G43.009 Migraine without aur a, not intractable, without status migrainosus Tyson Lombardi M.D. 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 Plan of Treatment Future Appointment(s):* 03/19/2021 2:00 pm - Tyson Lombardi M.D. at Main office - [place] Functional Status Description No Information Available Mental Status Description No Information Available Referrals Refer to Reason for Referral Status Appt Date Tyson Lombardi M.D. Created [facility] [place] [address] [phone]
--- OUTSIDE RECORDS SUMMARY | 2021-04-10 18:44 | CCD | Continuity of Care Document ---
Author Author Darin LOMBARDI M.D. Organization Unknown Address [address] [place] [id number] Phone [phone] Care Team Providers Care Business Analytics Intern Name Role Phone Vianney Garcia P.A.-C. AUTM [phone] Problems Active Problems Provider Date Localization-related epilepsy [...] Oxcarbazepine 600mg Tablets 1.5 Tab po bid 90tabs Tyson Lombardi M.D. 01/03/2021 History Medications Oxcarbazepine 300mg [...] lb BMI (Body Mass Index) 27.9 kg/m2 [place] Body Weight 172 lb Results Description No Information Available Procedures Date Code Description Status 03/19/2021 35127 Office/Outpatient Established Mo d MDM 30-39 Min Completed 01/03/2021 30363 Office/Outpatient Established Hi gh MDM 40-54 Min Completed 12/21/2020 68531 EEG Complete STD Phys/QHP>60 HR< 84 HR W/O Video Completed 12/21/2020 19006 EEG Complete STD Phys/QHP>36 HR< 60 HR W/O Video Completed 09/25/2020 08348 Phone Evaluation/Management Phys ician 11-20 Mins Completed Medical Devices Description No Information Available Encounters Type Date Location Provider Dx Diagnosis Office Visit 03/19/2021 2:00p [place] G40.009 Local-rel idio epi w seiz of loc onst,not ntrct,w/o stat epi G40.309 Gen idiopathic epilepsy, not intractable, w/o stat epi R06.83 Snoring R53.83 Other fatigue G43.109 Migraine with aura, not intr actable, w/o status migrainosus Office Visit 01/03/2021 12:45p [place] G40.009 Local-rel idio epi w seiz of loc onst,not ntrct,w/o stat epi G43.009 Migraine w/o aura, not intra ctable, w/o status migrainosus G40.309 Gen idiopathic epilepsy, not intractable, w/o stat epi G47.33 Obstructive sleep apnea (marcus lt) (pediatric) R53.83 Other fatigue Office Visit 09/25/2020 12:15p [place] G40.009 Local-rel idio epi w seiz [...] Lombardi M.D. Plan of Treatment Future Appointment(s):* 06/04/2021 2:15 pm - Tyson Lombardi M.D. at Main office - [place] Functional Status Description No Information Available Mental Status Description No Information Available Referrals Description No Information Available
--- OUTSIDE RECORDS SUMMARY | 2021-04-10 18:44 | CCD ---
Author Author [facility] Organization [facility] Address Unknown Phone Unavailable Care Team Providers Care [place] Machine Operator Name Role Phone JAYLYN, Nolan COUGHLIN Unavailable Unavailable LETTIERE, Nolan SANTOYO PA Unavailable Unavailable LETTIERE, Nolan SANTOYO PA Unavailable Unavailable LETTIERE, Nolan SANTOYO PA Unavailable Unavailable LETTIERE, A NATANAEL PA Unavailable Unavailable LETTIERE, A NATANAEL PA Unavailable Unavailable LETTIERE, Nolan SANTOYO PA Unavailable Unavailable LETTIERE, Nolan SANTOYO PA Unavailable Unavailable LETTIERE, Nolan SANTOYO PA Unavailable Unavailable LETTIERE, A NATANAEL PA [...] Unavailable LETTIERE, A NATANAEL PA Unavailable Unavailable Garcia, M Vianney PA-C [...] Unavailable Unavailable Tyson Lombardi MD Unavailable Unavailable Ali, Tyson STINSON Unavailable Unavailable Ali, Tyson MD Unavailable Unavailable [...] Ali, Tyson MD Unavailable Unavailable Ali, Tyson STINSON Unavailable Unavailable Ali, Tyson MD Unavailable Unavailable Ali, Tyson MD Unavailable Unavailable Ali, Tyson MD Unavailable Unavailable Ali, Tyson MD Unavailable Unavailable Ali, Tyson MD Unavailable Unavailable Ali, Tyson MD Unavailable Unavailable Garcia, M Vianney PA-C Unavailable [...] Unavailable Garcia, M Vianney PA-C Unavailable Unavailable Scordo, M Alka PA Unavailable [...] Unavailable Scordo, M Alka PA Unavailable Unavailable Re-disclosure Warning The records [...] is protected by Article 27-F of the [facility] Public Health law. If you continue you may have access to information: Regarding HIV / AIDS; Provided by facilities licensed or operated by the [facility] Office of Mental Health; or Provided by the [facility] Office for People With Developmental Disabilities. If such information is present, then the following [facility] mandated warning applies: This information has been [...] law may result in a fine or residential sentence or both. A general authorization for the release of medical or other information is NOT sufficient authorization for further disc losure. Allergies and Adverse Reactions Type Description Substance Reaction Status Data Source(s ) Allergy to substance Allergy to substance Allergy to substance [facility] ([facility]) Encounters Encounter Providers Location Date Indications Data Source(s ) Outpatient Attender: Tyson Lombardi MD Main office - [place] 03/19/2021 02:00:00 PM EDT [facility] ([facility]) Outpatient Attender: Tyson Lombardi MD Main office - [place] 01/03/2021 12:45:00 PM EDT [facility] ([facility]) Outpatient Attender: Vianney Garcia PA-C 10/13 11:03:00 AM EDT - 10/23/2020 11:03:00 AM EDT [facility] Outpatient Attender: Vianney Garcia PA-C Family Practice 10/13 11:00:00 AM EDT [facility] ([facility]) Outpatient Attender: Vianney Garcia PA-C 09/13 03:26:00 PM EDT - 09/28/2020 03:26:00 PM EDT [facility] Outpatient Attender: Vianney Garcia PA-C Family Practice 09/13 03:20:00 PM EDT [facility] ([facility]) Office Visit Attender: Tyson Lombardi MD Main office - [place] 09/25/2020 12:15:00 PM EDT [facility] ([facility]) Outpatient Attender: Tyson Lombardi MD Main office - [place] 08/16/2020 10:45:00 AM EST [facility] ([facility]) Alka Mederos PA-C: [address] [place] [id number], Ph. Attender: Alka BROWN - [facility] Medical 05/25/2020 12:00:00 AM EST [facility] ([facility]) Outpatient Attender: Vianney Garcia PA-C 04/15 01:20:00 PM EST - 05/01/2020 01:20:00 PM EST [facility] Outpatient Attender: Tyson Lombardi MD Main office - [place] 04/25/2020 01:30:00 PM EST [facility] ([facility]) Outpatient Attender: NATANAEL arriaga 03/22/2020 09:50:00 AM EDT [facility] ([place] [facility]) Outpatient Attender: Tyson Lomabrdi MD Main office - [place] 03/07/2020 09:30:00 AM EDT [facility] ([facility]) Outpatient Attender: Vianney Garcia PA-C 09/2019 02:40:00 PM EDT - 02/17/2020 02:40:00 PM EDT [facility] Immunizations Vaccine Date Status Description Data Source(s) COVID-19 VACCINE Moderna 01/24/2021 12:00:00 AM EDT completed [facility] Vaccine Series Complete: YESThis Data wa s Submitted to [facility]. COVID-19 VACCINE Moderna 11/16/2020 12:00:00 AM EDT completed [facility] Vaccine Series Complete: NOThis Data was Submitted to [facility]. New in 2011. IIV4 05/01/2020 12:45:00 PM EST completed [facility] ([facility]) Medications Medication Brand Name Start Date Product Form Dose Route Admi nistrative Instructions Pharmacy Instructions Status Indications Reaction Description Data Source(s) oxcarbazepine 600 MG Oral Tablet Oxcarbazepine 01/03/2021 12:00:00 AM EDT ORAL active [facility] ([facility]) oxcarbazepine 300 MG Oral Tablet Oxcarbazepine 09/25/2020 12:00:00 AM EDT completed [facility] ([facility]) Divalproex Sodium 500 MG Delayed Release Oral Tablet Divalpr oex Sodium 08/16/2020 12:00:00 AM EST ORAL completed [facility] ([facility]) oxcarbazepine 300 MG Oral Tablet Oxcarbazepine 04/25/2020 12:00:00 AM EST ORAL completed [facility] ([facility]) No Active Medications 03/22/2020 12:00:00 AM EDT completed [facility] ([place] [facility] [facility], [facility]) Amoxicillin 875 MG Oral Tablet Amoxicillin 03/22/2020 12:00:00 AM EDT active [facility] ([facility], [facility]) Insurance Providers Payer name Policy type / Coverage type Policy ID Covered democrat ID Covered democrat's relationship to coleman Policy Coleman Plan Information [facility] COMMUNITY PLAN [facility] [id number] SP [id number] [facility] [id number] [facility] COMMUNITY PLAN XIX [id number] 18 [id number] [facility] O [id number] S [id number] [facility] COMMUNITY PLAN [facility] [id number] SP [id number] [place] [id number] SP [id number] [facility] [place] [id number] 18 [id number] MEDICAID [id number] SP [id number] MEDICAID M [id number] S [id number] [facility] COMMUNITY PLAN [facility] [id number] SP [id number] Problems, Conditions, and Diagnoses Code Display Name Description Problem Type Effective Dates Data Source(s) F339 Major depressive disorder, recurrent, un specified Major depressive disorder, recurrent, unspecified Diagnosis 09/28/2020 03:26:00 PM EDT [facility] F419 Anxiety disorder, unspecified Anxiety disorder, unspec ified Diagnosis 09/28/2020 03:26:00 PM EDT [facility] G4089 Other seizures Other seizures Diagnosis 09/28/2020 03:26: 00 PM EDT [facility] Z23 Encounter for immunization Encounter for immunization Diagnosis 05/01/2020 01:20:00 PM EST 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 Problem 08/16/2020 12:00:00 AM EST [facility] ([facility] G40.89 Other seizures Other seizures Problem 03/07/2020 12:00: 00 AM EDT [facility] ([facility] G43.009 Migraine without aura, not refractory Mi graine without aura, not refractory Problem 03/07/2020 12:00:00 AM EDT [facility] ([facility] G40.009 Localization-related epilepsy Localization-related epi lepsy Problem 03/07/2020 12:00:00 AM EDT [facility] ([facility] ) Surgeries/Procedures Procedure Description Date Indications Data Source(s) OFFICE OUTPATIENT VISIT 25 MINUTES 03/19/2021 12:00:00 AM EDT [facility] ([facility] OFFICE OUTPATIENT VISIT 40 MINUTES 01/03/2021 12:00:00 AM EDT [facility] ([facility] EEG Complete STD Phys/QHP>36 HR<60 HR W/O Video 2020 12:00:00 AM EDT [facility] ([facility] EEG Complete STD Phys/QHP>60 HR<84 HR W/O Video 2020 12:00:00 AM EDT [facility] ([facility] OFFICE OUTPATIENT VISIT 15 MINUTES 10/23/2020 12:00:00 AM EDT [facility] ([facility]) OFFICE OUTPATIENT VISIT 15 MINUTES 09/28/2020 12:00:00 AM EDT [facility] ([facility]) PHYSICIAN TELEPHONE EVALUATION 11-20 MIN 09/25/2020 12 :00:00 AM EDT [facility] ([facility] OFFICE OUTPATIENT VISIT 25 MINUTES 08/16/2020 12:00:00 AM EST [facility] ([facility] MRI Brain W/O Contrast, Followed By Contrast 0 12:00:00 AM EDT [facility] ([facility] MRI Brain W/O Contrast, Followed By Contrast 0 12:00:00 AM EDT [facility] ([facility] ELECTROENCEPHALOGRAM W/REC AWAKE&ASLEEP 03/08/2020 12: 00:00 AM EDT [facility] ([facility]) ELECTROENCEPHALOGRAM W/REC AWAKE&ASLEEP 03/08/2020 12: 00:00 AM EDT [facility] ([facility]) Results ID Date Data Source [id number] 12/12/2020 08:19:00 PM EDT [facility] ([facility]) Name Value Range Interpretation Code Description Data Dorothy rce(s) Supporting Document(s) Laboratory test finding (navigational concept) 46.0 % 3 8.0-51.0 Normal (applies to non-numeric results) [facility] ([facility]) Laboratory test finding (navigational concept) 106 mg/dL 7 0-105 Above high normal [facility] ([facility]) Laboratory test finding (navigational concept) 4.4 meq/L 3 .5-5.1 Normal (applies to non-numeric results) [facility] ([facility]) Laboratory test finding (navigational concept) 142 meq/L 1 36-145 Normal (applies to non-numeric results) [facility] ([facility]) Laboratory test finding (navigational concept) 4.6 mg/dL 4 .5-5.3 Normal (applies to non-numeric results) [facility] ([facility]) Laboratory test finding (navigational concept) 102 meq/L 9 8-109 Normal (applies to non-numeric results) [facility] ([facility]) Laboratory test finding (navigational concept) 14 mg/dL 8 -26 Normal (applies to non-numeric results) [facility] ([facility]) Laboratory test finding (navigational concept) 24.0 MM/L 2 3.0-27.0 Normal (applies to non-numeric results) [facility] ([facility]) Laboratory test finding (navigational concept) 1.1 mg/dL 0 .6-1.3 Normal (applies to non-numeric results) [facility] ([facility]) ID Date Data Source [id number] 10/16/2020 04:18:00 AM EDT [facility] Name Value Range Interpretation Code Description Data Dorothy rce(s) Supporting Document(s) SARS coronavirus 2 RNA [Presence] in Res piratory specimen by [place] with probe detection NEGATIVE [facility] This lab was ordered by [facility] a nd reported by [facility]. ID Date Data Source [id number] 09/23/2020 12:00:00 AM EDT [facility] Name Value Range Interpretation Code Description Data Dorothy rce(s) Supporting Document(s) SARS-CoV2 Rapid Antigen Negative [facility] This lab was ordered by [facility] and reported by [facility]. ID Date Data Source [id number] 08/09/2020 12:00:00 AM EST [facility] Name Value Range Interpretation Code Description Data Dorothy rce(s) Supporting Document(s) SARS-CoV2 Rapid Antigen Negative [facility] This lab was ordered by [facility] and reported by [facility]. Procedure Social History Code Duration Value Status Description Data Source(s ) Smoking 03/22/2020 12:00:00 AM EDT Patient has never smoked co mpleted Patient has never smoked [facility] ([facility], [facility]) Vital Signs ID Date Data Source UNK Name Value Range Interpretation Code Description Data Source(s) Heart rate 77 /min 77 /min [facility] ([facility]) Systolic blood pressure 122 mm[Hg] 122 mm[Hg] [facility] ([facility]) Diastolic blood pressure 82 mm[Hg] 82 mm[Hg] [facility] ([facility]) Respiratory rate 16 /min 16 /min [facility] ( [facility]) Body weight 261.38 [lb_av] 261.38 [lb_av] [facility] ([facility]) Oxygen saturation in Arterial blood by Pulse oximetry 99 % 99 % [facility] ([facility]) Body weight 118.560 kg 118.560 kg [facility] ([facility]) Body height 71 [in_i] 71 [in_i] [facility] ([facility]) 5'11" Body mass index (BMI) [Ratio] 36.5 kg/m2 36.5 k g/m2 [facility] ([facility]) Body temperature 97.1 [degF] 97.1 [degF] [facility] ([facility]) Body surface area Derived from formula 2.36 m2 2.36 m2 [facility] ([facility]) Body height 71 [in_i] 71 [in_i] [facility] ([facility]) 5'11" Diastolic blood pressure 82 mm[Hg] 82 mm[Hg] [facility] ([facility]) Heart rate 67 /min 67 /min [facility] ([facility]) Systolic blood pressure 122 mm[Hg] 122 mm[Hg] [facility] ([facility]) Body temperature 98.1 [degF] 98.1 [degF] [facility] ([facility]) Respiratory rate 16 /min 16 /min [facility] ( [facility]) Oxygen saturation in Arterial blood by Pulse oximetry 98 % 98 % [facility] ([facility]) Body weight 251.00 [lb_av] 251.00 [lb_av] [facility] ([facility]) Body weight 113.854 kg 113.854 kg [facility] ([facility]) Body mass index (BMI) [Ratio] 35.0 kg/m2 35.0 k g/m2 [facility] ([facility]) Body surface area Derived from formula 2.32 m2 2.32 m2 [facility] Heart rate 77 /min 77 /min [facility] ([facility]) Diastolic blood pressure 70 mm[Hg] 70 mm[Hg] [facility] ([facility]) Respiratory rate 16 /min 16 /min [facility] ( [facility]) Body temperature 97.8 [degF] 97.8 [degF] [facility] ([facility]) Oxygen saturation in Arterial blood by Pulse oximetry 98 % 98 % [facility] ([facility]) Body weight 101.153 kg 101.153 kg [facility] ([facility]) Body weight 223.00 [lb_av] 223.00 [lb_av] [facility] ([facility]) Body height 71 [in_i] 71 [in_i] [facility] ([facility]) 5'11" Body mass index (BMI) [Ratio] 31.1 kg/m2 31.1 k g/m2 [facility] ([facility]) Body surface area Derived from formula 2.21 m2 2.21 m2 [facility] ([facility]) Systolic blood pressure 118 mm[Hg] 118 mm[Hg] [facility] ([facility]) Systolic blood pressure 133 mm[Hg] 133 mm[Hg] [facility] ([facility]) Diastolic blood pressure 80 mm[Hg] 80 mm[Hg] [facility] ([facility], [facility]) Heart rate 94 /min 94 /min [facility] ([facility], [facility]) Oxygen saturation in Arterial blood by Pulse oximetry 98 % 98 % [facility] ([facility], [facility]) Body temperature 98.3 [degF] 98.3 [degF] [facility] ([facility], [facility]) Body weight 200.00 [lb_av] 200.00 [lb_av] [facility] ([facility], [facility]) Body height 71 [in_i] 71 [in_i] [facility] ([facility]) 5'11" Body mass index (BMI) [Ratio] 27.9 kg/m2 27.9 k g/m2 [facility] ([facility]) Systolic blood pressure 120 mm[Hg] 120 mm[Hg] [facility] ([facility] ) Diastolic blood pressure 75 mm[Hg] 75 mm[Hg] [facility] ([facility] ) Heart rate 78 /min 78 /min [facility] ([facility] ) Respiratory rate 14 /min 14 /min [facility] ( [facility] ) Body weight 200.00 [lb_av] 200.00 [lb_av] [facility] ([facility] ) Body height 71 [in_i] 71 [in_i] [facility] ([facility] 5'11" Body mass index (BMI) [Ratio] 27.9 kg/m2 27.9 k g/m2 [facility] ([facility] ) [place] body weight 172 [lb_av] 172 [lb_av] [facility] ([facility] )
[2021-04-10 18:55] LABS: HEMATOCRIT 46.4 % (42.0-52.0); HEMOGLOBIN 15.2 g/dl (13.5-17.5); MEAN CORPUSCULAR HEMOGLOBIN 27.7 pg (27.0-33.0); MEAN CORPUSCULAR HGB CONC 32.8 g/dl (32.0-36.5); MEAN CORPUSCULAR VOLUME 84.5 fl (80.0-96.0); PLATELET COUNT, AUTOMATED 264 10^3/uL (150-450); RED BLOOD COUNT 5.49 10^6/uL (4.30-6.10); WHITE BLOOD COUNT 9.7 10^3/uL (4.0-10.0)
[2021-04-10 19:23] LABS: BLOOD UREA NITROGEN 17 MG/DL (7-18); CALCIUM LEVEL 9.2 MG/DL (8.5-10.1); CARBON DIOXIDE LEVEL 27 MEQ/L (21-32); CHLORIDE LEVEL 99 MEQ/L (98-107); CREATININE FOR GFR 1.22 MG/DL (0.70-1.30); GLOMERULAR FILTRATION RATE > 60.0 (>60); GLUCOSE, FASTING 336 MG/DL (70-100); POTASSIUM SERUM 5.4 MEQ/L (3.5-5.1); SODIUM LEVEL 129 MEQ/L (136-145)
[2021-04-10 20:15] VITALS: BP 121/68
== END 2021-04-10 21:00 | disposition home or self-care (01) ==
LOC: M ED 17:34 → EDBD 17:34 → M ED 21:00
DX: G40.909 Epilepsy, unspecified, not intractable, without status epilepticus (principal); Z79.899 Other long term (current) drug therapy; Z91.013 Allergy to seafood
CPT/HCPCS: 36415; 80048; 80180; 85027; 99284; J1953

== ENCOUNTER → 2021-05-26 | Outpatient (CLI) | payer OTHER ==
[2021-05-26 14:48] LABS: BASO % 0.5 % (0.0-1.0); EOS # 0.1 10^3/uL (0.0-0.5); EOS % 1.6 % (0.0-3.0); HEMATOCRIT 43.8 % (42.0-52.0); LYMPH # 1.7 10^3/uL (1.5-5.0); LYMPH % 20.3 % (24.0-44.0); MEAN CORPUSCULAR HGB CONC 34.2 g/dl (32.0-36.5); MEAN CORPUSCULAR VOLUME 81.7 fl (80.0-96.0); MONO # 0.7 10^3/uL (0.0-0.8); MONO % 7.9 % (2.0-8.0); NEUTROPHILS # 5.9 10^3/uL (1.5-8.5); NEUTROPHILS % 69.5 % (36.0-66.0); PLATELET COUNT, AUTOMATED 298 10^3/uL (150-450); RED BLOOD COUNT 5.36 10^6/uL (4.30-6.10); WHITE BLOOD COUNT 8.5 10^3/uL (4.0-10.0)
[2021-05-26 14:55] LABS: APPEARANCE, URINE CLEAR (CLEAR); BACTERIA, URINE AUTO NEGATIVE (NEGATIVE); BILIRUBIN, URINE AUTO NEGATIVE (NEGATIVE); BLOOD, URINE BLOOD NEGATIVE (NEGATIVE); COLOR, URINE YELLOW (YELLOW); GLUCOSE, URINE (UA) AUTO NEGATIVE (NEGATIVE); KETONE, URINE AUTO NEGATIVE (NEGATIVE); LEUKOCYTE ESTERASE, URINE AUTO NEGATIVE (NEGATIVE); MUCUS, URINE SMALL (NEGATIVE); NITRITE, URINE AUTO NEGATIVE (NEGATIVE); PROTEIN, URINE AUTO NEGATIVE (NEGATIVE); RBC, URINE AUTO 2 /HPF (0-3); SPECIFIC GRAVITY URINE AUTO 1.015 (1.002-1.035); SQUAMOUS EPITHELIAL CELL UR AU 0 /HPF (0-6); UROBILINOGEN, URINE AUTO 0.2 mg/dL (0.0-2.0); WBC, URINE AUTO 1 /HPF (0-3)
[2021-05-26 15:17] LABS: HEMOGLOBIN A1c 5.3 %
[2021-05-26 15:35] LABS: ALBUMIN 4.5 GM/DL (3.2-5.2); ALT/SGPT 22 U/L (12-78); BILIRUBIN,TOTAL 0.5 MG/DL (0.2-1.0); BLOOD UREA NITROGEN 12 MG/DL (7-18); CALCIUM LEVEL 9.7 MG/DL (8.5-10.1); CARBON DIOXIDE LEVEL 31 MEQ/L (21-32); CHLORIDE LEVEL 102 MEQ/L (98-107); CHOLESTEROL LEVEL 211 MG/DL (<200); CHOLESTEROL RISK RATIO 3.349 (<5); CREATININE FOR GFR 1.12 MG/DL (0.70-1.30); GLOMERULAR FILTRATION RATE > 60.0 (>60); GLUCOSE, FASTING 86 MG/DL (70-100); HDL CHOLESTEROL 63 MG/DL (>40); LDL CHOLESTEROL 131 MG/DL (<100); NON-HDL-C 148 MG/DL; POTASSIUM SERUM 4.4 MEQ/L (3.5-5.1); SODIUM LEVEL 138 MEQ/L (136-145); THYROID STIMULATING HORMONE 0.707 uIU/ML (0.358-3.740); TOTAL PROTEIN 8.2 GM/DL (6.4-8.2); TRIGLYCERIDES LEVEL 85 MG/DL (<150)
== END ==
LOC: M LAB 14:06
PROVIDERS: ATTEND Physician Assistant
DX: Z00.01 Encounter for general adult medical examination with abnormal findings (principal)

== ENCOUNTER → 2021-05-26 | Outpatient (CLI) | payer OTHER ==
[2021-05-26 14:48] LABS: BASO % 0.5 % (0.0-1.0); EOS # 0.2 10^3/uL (0.0-0.5); EOS % 1.8 % (0.0-3.0); HEMATOCRIT 43.2 % (42.0-52.0); HEMOGLOBIN 14.7 g/dl (13.5-17.5); LYMPH # 1.8 10^3/uL (1.5-5.0); LYMPH % 21.1 % (24.0-44.0); MEAN CORPUSCULAR HEMOGLOBIN 27.8 pg (27.0-33.0); MEAN CORPUSCULAR VOLUME 81.8 fl (80.0-96.0); MONO # 0.7 10^3/uL (0.0-0.8); MONO % 7.7 % (2.0-8.0); NEUTROPHILS # 5.9 10^3/uL (1.5-8.5); NEUTROPHILS % 68.7 % (36.0-66.0); PLATELET COUNT, AUTOMATED 301 10^3/uL (150-450); RED BLOOD COUNT 5.28 10^6/uL (4.30-6.10); WHITE BLOOD COUNT 8.6 10^3/uL (4.0-10.0)
[2021-05-26 15:25] LABS: ALBUMIN 4.4 GM/DL (3.2-5.2); ALT/SGPT 23 U/L (12-78); BILIRUBIN,TOTAL 0.5 MG/DL (0.2-1.0); BLOOD UREA NITROGEN 13 MG/DL (7-18); CALCIUM LEVEL 9.3 MG/DL (8.5-10.1); CARBON DIOXIDE LEVEL 31 MEQ/L (21-32); CHLORIDE LEVEL 103 MEQ/L (98-107); CREATININE FOR GFR 1.19 MG/DL (0.70-1.30); GLOMERULAR FILTRATION RATE > 60.0 (>60); GLUCOSE, FASTING 86 MG/DL (70-100); POTASSIUM SERUM 4.4 MEQ/L (3.5-5.1); SODIUM LEVEL 138 MEQ/L (136-145)
== END ==
LOC: M LAB 14:09
PROVIDERS: ATTEND Psychiatry & Neurology Neurology
DX: R56.9 Unspecified convulsions (principal)

== ENCOUNTER 2022-11-21 21:47 | Emergency (ER) | payer OTHER ==
[~2022-11-21] VITALS: Ht 177.8 cm; Wt 80.8 kg
[2022-11-21] MEDS ORDERED: NS 1,000 ML IV ONE ×2 (22:00→23:35)
[2022-11-21 22:35] LABS: BASO # 0.1 10^3/uL (0.0-0.2); BASO % 0.3 % (0.0-1.0); EOS # 0.1 10^3/uL (0.0-0.5); EOS % 0.3 % (0.0-3.0); HEMATOCRIT 42.8 % (42.0-52.0); HEMOGLOBIN 14.4 g/dl (13.5-17.5); LYMPH # 1.8 10^3/uL (1.5-5.0); LYMPH % 11.5 % (24.0-44.0); MEAN CORPUSCULAR HEMOGLOBIN 28.9 pg (27.0-33.0); MEAN CORPUSCULAR HGB CONC 33.6 g/dl (32.0-36.5); MEAN CORPUSCULAR VOLUME 85.8 fl (80.0-96.0); MONO # 0.7 10^3/uL (0.0-0.8); MONO % 4.4 % (2.0-8.0); NEUTROPHILS # 12.7 10^3/uL (1.5-8.5); NEUTROPHILS % 83.1 % (36.0-66.0); PLATELET COUNT, AUTOMATED 318 10^3/uL (150-450); RED BLOOD COUNT 4.99 10^6/uL (4.30-6.10); WHITE BLOOD COUNT 15.3 10^3/uL (4.0-10.0)
[2022-11-21 23:07] LABS: ALBUMIN 4.5 G/DL (3.2-5.2); ALKALINE PHOSPHATASE 74 U/L (46-116); ALT/SGPT 24 U/L (7.0-40); AST/SGOT 24 U/L (<34); BILIRUBIN,DIRECT 0.1 MG/DL (<0.4); BILIRUBIN,TOTAL 0.3 MG/DL (0.3-1.2); BLOOD UREA NITROGEN 20 MG/DL (9-23); CALCIUM LEVEL 9.3 MG/DL (8.5-10.1); CARBON DIOXIDE LEVEL 24 MMOL/L (20-31); CHLORIDE LEVEL 103 MMOL/L (98-107); GLOMERULAR FILTRATION RATE > 60.0 (>60); GLUCOSE, FASTING 106 MG/DL (60-100); MAGNESIUM LEVEL 1.7 MG/DL (1.8-2.4); PHOSPHORUS LEVEL 4.4 MG/DL (2.5-4.9); POTASSIUM SERUM 4.7 MMOL/L (3.5-5.1); SODIUM LEVEL 137 MMOL/L (136-145); TOTAL PROTEIN 7.3 G/DL (5.7-8.2)
[2022-11-22 01:08] LABS: AMPHETAMINES LEVEL URINE NEGATIVE (NEGATIVE); BARBITURATES URINE NEGATIVE (NEGATIVE)
[2022-11-22 01:09] LABS: BENZODIAZEPINES URINE POSITIVE (NEGATIVE); CANNABINOIDS URINE POSITIVE (NEGATIVE); COCAINE METABOLITE URINE NEGATIVE (NEGATIVE); METHADONE URINE NEGATIVE (NEGATIVE); OPIATES URINE NEGATIVE (NEGATIVE); PHENCYCLIDINE URINE NEGATIVE (NEGATIVE)
[2022-11-22] MEDS ORDERED: levETIRAcetam INJection 1,500 MG in D5W 100 ML IV ONE (02:40)
[2022-11-22 03:32] VITALS: TEMP 99.1
[2022-11-22 04:00] VITALS: BP 121/59
[2022-11-22 04:02] VITALS: O2SAT 98
[2022-11-22] MEDS ORDERED: OXCA300T14 PO (04:19)
[2022-11-22] MEDS ORDERED: OXCA600T8 PO (04:19)
[2022-11-22] MEDS ORDERED: KEPP1TAB PO (04:19)
[2022-11-25 17:07] LABS: LEVETIRACETAM (KEPPRA) <2.0 ug/mL (10.0-40.0); OXCARBAZEPINE 20 ug/mL (10-35)
== END 2022-11-22 04:50 | disposition home or self-care (01) ==
LOC: EDBD 21:47 → M ED 21:47
DX: G40.909 Epilepsy, unspecified, not intractable, without status epilepticus (principal); F12.10 Cannabis abuse, uncomplicated; Z91.013 Allergy to seafood; Z79.899 Other long term (current) drug therapy; Z79.811 Long term (current) use of aromatase inhibitors
CPT/HCPCS: 80048; 80076; 80180; 80183; 80307; 82140; 82330; 83605; 83735; 84100; 85025; 93041; 94760; 96365; 99285; J1953

== ENCOUNTER 2023-08-09 15:51 | Emergency (ER) | payer OTHER ==
[~2023-08-09 15:51] MED LIST changes: +OXCA600T8 PO
[2023-08-09] MEDS ORDERED: LORazepam 2 MG/ML 1ML VIAL IV PRN (16:10)
[2023-08-09 16:36] VITALS: BP 147/78; O2SAT 100
[2023-08-09 17:45] LABS: BASO % 0.2 % (0.0-1.0); HEMATOCRIT 43.2 % (42.0-52.0); HEMOGLOBIN 14.7 g/dl (13.5-17.5); LYMPH # 0.8 10^3/uL (1.5-5.0); LYMPH % 4.3 % (24.0-44.0); MEAN CORPUSCULAR VOLUME 85.2 fl (80.0-96.0); MONO # 0.7 10^3/uL (0.0-0.8); MONO % 3.9 % (2.0-8.0); NEUTROPHILS # 17.3 10^3/uL (1.5-8.5); NEUTROPHILS % 91.1 % (36.0-66.0); PLATELET COUNT, AUTOMATED 347 10^3/uL (150-450); RED BLOOD COUNT 5.07 10^6/uL (4.30-6.10)
[2023-08-09 17:48] LABS: ETHYL ALCOHOL (ETHANOL) 0.005 % (0.000-0.010)
[2023-08-09] MEDS: NS 1,000 ML IV ONE (17:54)
[2023-08-09] MEDS: KETOROLAC 30 MG/ML 1ML VIAL IV ONE (17:55)
[2023-08-09] MEDS: OXcarbazepine 300 MG TAB PO STA (17:57)
[2023-08-09 18:00] LABS: AMPHETAMINES LEVEL URINE NEGATIVE (NEGATIVE); BARBITURATES URINE NEGATIVE (NEGATIVE); BENZODIAZEPINES URINE NEGATIVE (NEGATIVE); COCAINE METABOLITE URINE NEGATIVE (NEGATIVE); METHADONE URINE NEGATIVE (NEGATIVE); OPIATES URINE NEGATIVE (NEGATIVE); PHENCYCLIDINE URINE NEGATIVE (NEGATIVE)
[2023-08-09 18:04] LABS: CANNABINOIDS URINE POSITIVE (NEGATIVE)
[2023-08-09 18:04] LABS: ALBUMIN 3.8 G/DL (3.2-5.2); ALKALINE PHOSPHATASE 64 U/L (46-116); ALT/SGPT 23 U/L (7.0-40); AST/SGOT 44 U/L (<34); BILIRUBIN,DIRECT < 0.1 MG/DL (<0.4); BILIRUBIN,TOTAL 0.3 MG/DL (0.3-1.2); BLOOD UREA NITROGEN 14 MG/DL (9-23); CALCIUM LEVEL 7.9 MG/DL (8.5-10.1); CARBON DIOXIDE LEVEL 24 MMOL/L (20-31); CHLORIDE LEVEL 110 MMOL/L (98-107); CREATININE FOR GFR 0.87 MG/DL (0.70-1.30); GLOMERULAR FILTRATION RATE > 60.0 (>60); GLUCOSE, FASTING 88 MG/DL (60-100); MAGNESIUM LEVEL 1.8 MG/DL (1.8-2.4); POTASSIUM SERUM 5.6 MMOL/L (3.5-5.1); SODIUM LEVEL 139 MMOL/L (136-145); TOTAL PROTEIN 6.6 G/DL (5.7-8.2)
== END 2023-08-09 19:24 | disposition home or self-care (01) ==
LOC: M ED 15:51 → EDBD 15:51 → M ED 19:24
DX: G40.909 Epilepsy, unspecified, not intractable, without status epilepticus (principal); F12.10 Cannabis abuse, uncomplicated; Z91.013 Allergy to seafood; Z79.899 Other long term (current) drug therapy
CPT/HCPCS: 70450; 80048; 80076; 80183; 80203; 80307; 82077; 83605; 83735; 85025; 93041; 94760; 96361; 96374; 99285; J1885